=== PATIENT | female | born 1955 | race Caucasian/White ===

== ENCOUNTER 2016-12-18 06:13 | Day surgery (SDC) | payer MEDICAID ==
[2016-12-18] MEDS ORDERED: LACTATED RINGERS 1,000 ML IV ONE (06:38)
[2016-12-18] MEDS ORDERED: fentaNYL 250 MCG/5 ML VIAL IVP ONE (08:25)
[2016-12-18] MEDS ORDERED: MIDAZOLAM 2 MG/2 ML VIAL IVP ONE (08:25)
== END 2016-12-18 06:14 | disposition home or self-care (01) ==
PROC: 0DBP8ZX Excision of Rectum, Via Natural or Artificial Opening Endoscopic, Diagnostic (ICD-10-PCS; principal; 2016-12-18 07:30)
DX: Z12.11 Encounter for screening for malignant neoplasm of colon (principal); K62.1 Rectal polyp; Z85.41 Personal history of malignant neoplasm of cervix uteri; Z85.118 Personal history of other malignant neoplasm of bronchus and lung; K21.9 Gastro-esophageal reflux disease without esophagitis; K64.8 Other hemorrhoids
CPT/HCPCS: 45380; J3010; J7120

== ENCOUNTER 2017-08-04 08:27 | Observation (INO) | payer MEDICAID ==
[2017-08-04] MEDS ORDERED: ONDANSETRON 4 MG/2 ML VIAL IVP STA (09:12)
[2017-08-04] MEDS ORDERED: SODIUM CHLORIDE 0.9% 1,000 ML IV ONE (09:12)
[2017-08-04] MEDS ORDERED: ONDANSETRON 4 MG/2 ML VIAL ONE (09:20)
[2017-08-04 09:25] LABS: BASOPHILS % (AUTO) 0.3 %; HCT - HEMATOCRIT 39.7 % (37.0-47.0); HGB - HEMOGLOBIN 13.4 g/dL (12.0-16.0); LYMPHOCYTES # (AUTO) 0.6 10^3/uL (1.5-3.5); LYMPHOCYTES % (AUTO) 6.1 %; MEAN CORPUSCULAR HEMOGLOBIN 31.4 pg (27.0-31.0); MEAN CORPUSCULAR HGB CONC 33.7 g/dL (32.0-36.0); MEAN CORPUSCULAR VOLUME 93.3 fL (81.0-99.0); MEAN PLATELET VOLUME 6.9 fL (7.9-10.8); MONOCYTES # (AUTO) 0.2 10^3/uL (0.0-1.0); MONOCYTES % (AUTO) 2.5 %; NEUTROPHILS # (AUTO) 8.6 10^3/uL (1.5-6.6); NEUTROPHILS % (AUTO) 91.1 %; RED BLOOD COUNT 4.26 10^6/uL (4.20-5.40); RED CELL DISTRIBUTION WIDTH 14.3 % (12.0-15.0); UNCORRECTED WHITE BLOOD COUNT 9.5 x10^3/uL; WHITE BLOOD COUNT 9.5 x10^3/uL (4.8-10.8)
[2017-08-04 09:39] LABS: ALBUMIN/GLOBULIN RATIO 1.3 (1.0-2.2); BILIRUBIN,TOTAL 0.5 mg/dL (0.2-1.0); CALCIUM 9.5 mg/dL (8.5-10.3); CREATININE 0.7 mg/dL (0.4-1.0); POTASSIUM 3.5 mmol/L (3.5-5.0); TOTAL PROTEIN 6.9 g/dL (6.7-8.2)
[2017-08-04] MEDS ORDERED: SODIUM CHLORIDE FLUSH 0.9% 10 ML SYRINGE IVP ONE (10:10)
[2017-08-04] MEDS ORDERED: PROMETHAZINE INJ 25 MG in SODIUM CHLORIDE 0.9% 50 ML IV STA (10:13)
--- NOTE | 2017-08-04 10:16 | ED Physician Documentation ---
PD HPI NVD - Stated complaint Stated Complaint: VOMITING - Chief complaint Chief Complaint: Abd Pain - History obtained from History obtained from: Patient, Family - History of Present Illness Timing - onset: Last night Timing - duration: Hours Timing - details: Abrupt onset, Still present in ED Associated symptoms: Abdominal pain, Loss of appetite Contributing factors: Sick contact ( sick with same last week with milder symptoms.) Improved by: Laying still Worsened by: Eating, Moving Similar symptoms before: Has not had sx before Recently seen: Not recently seen - Additonal information Additional information: 61-year-old female with a prior history of 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 Her had similar symptoms last week. Review of Systems Constitutional: reports: Chills, Myalgias, Fatigue. denies: Fever Eyes: denies: Decreased vision Ears: denies: Ear pain Nose: denies: Rhinorrhea / runny nose, Congestion Throat: denies: Sore throat Cardiac: denies: Chest pain / pressure, Palpitations Respiratory: denies: Dyspnea, Cough GI: reports: Abdominal Pain, Nausea, Vomiting : denies: Dysuria, Frequency Skin: denies: Rash Musculoskeletal: denies: Neck pain, Back pain, Extremity pain Neurologic: reports: Generalized weakness, Headache. denies: Focal weakness, Numbness, Head injury, LOC PD PAST MEDICAL HISTORY - Past Medical History Past Medical History: Yes Cardiovascular: None Respiratory: None Endocrine/Autoimmune: None GI: GERD : None HEENT: None Psych: None Musculoskeletal: None Derm: None Other Past Medical History: cervical cancer - Past Surgical History Past Surgical History: Yes HEENT: Tonsil/Adenoidectomy - Present Medications Home Medications: Ambulatory Orders Medication Instructions Recorded Confirmed Esomeprazole Magnesium [Nexium] 20 mg PO DAILY PRN 12/17/16 08/04/17 Gabapentin 300 mg PO DAILY PRN 12/17/16 08/04/17 Ondansetron HCl [Zofran] 8 mg PO QID PRN 12/17/16 08/04/17 - Allergies Allergies/Adverse Reactions: Allergies Allergy/AdvReac Type Severity Reaction Status Date / Time acetaminophen [From Vicodin] AdvReac Intermediate Nausea Verified 08/04/17 08:37 hydrocodone bitartrate * AdvReac Mild Nausea Verified 08/04/17 08:37 [From Vicodin] - Social History Does the pt smoke?: No Smoking Status: Never smoker PD ED PE NORMAL - Vitals Vital signs reviewed: Yes (normal ) - General General: Alert and oriented X 3, Well developed/nourished, Other (The patient is withdrawn and appears anxious. ) - HEENT HEENT: Atraumatic, PERRL, EOMI, Other (dry mucous membranes) - Neck Neck: Supple, no meningeal sign, No bony TTP - Cardiac Cardiac: RRR, No murmur - Respiratory Respiratory: No respiratory distress, Clear bilaterally - Abdomen Abdomen: Soft, Non tender - Back Back: No CVA TTP, No spinal TTP - Derm Derm: Normal color, Warm and dry, No rash - Extremities Extremities: No deformity, No edema - Neuro Neuro: No motor deficit, No sensory deficit - Psych Psych: Normal mood, Normal affect Results - Vitals Vitals: Vital Signs - 24 hr 08/04/17 08/04/17 08/04/17 08:34 09:37 10:40 Temperature 36 C L 36.2 C L 36.6 C Heart Rate 78 78 83 Respiratory 18 16 15 Rate Blood Pressure 128/80 118/67 125/66 O2 Saturation 99 98 95 08/04/17 12:42 Temperature Heart Rate 83 Respiratory 18 Rate Blood Pressure 138/62 H O2 Saturation 100 Oxygen O2 Source Room air - Labs Labs: Laboratory Tests 08/04/17 08/04/17 08/04/17 09:07 09:07 09:07 WBC 9.5 RBC 4.26 Hgb 13.4 Hct 39.7 MCV 93.3 MCH 31.4 H MCHC 33.7 RDW 14.3 Plt Count 237 MPV 6.9 L Neut # 8.6 H Lymph # 0.6 L [place] # 0.2 Eos # 0.0 Baso # 0.0 Absolute Nucleated RBC 0.00 Nucleated RBCs 0.0 Sodium 142 Potassium 3.5 Chloride 104 Carbon Dioxide 27 Anion Gap 11.0 BUN 19 Creatinine 0.7 Estimated GFR (MDRD) 85 L Glucose 160 H Calcium 9.5 Total Bilirubin 0.5 AST 22 ALT 20 Alkaline Phosphatase 56 Troponin I < 0.04 Total Protein 6.9 Albumin 3.9 Globulin 3.0 Albumin/Globulin Ratio 1.3 Lipase 32 Urine Color Urine Clarity Urine pH Ur Specific Macy Urine Protein Urine Glucose (UA) Urine Ketones Urine Occult Blood Urine Nitrite Urine Bilirubin Urine Urobilinogen Ur Leukocyte Esterase Ur Microscopic Review Urine Culture Comments 08/04/17 10:05 WBC RBC Hgb Hct MCV MCH MCHC RDW Plt Count MPV Neut # Lymph # [place] # Eos # Baso # Absolute Nucleated RBC Nucleated RBCs Sodium Potassium Chloride Carbon Dioxide Anion Gap BUN Creatinine Estimated GFR (MDRD) Glucose Calcium Total Bilirubin AST ALT Alkaline Phosphatase Troponin I Total Protein Albumin Globulin Albumin/Globulin Ratio Lipase Urine Color YELLOW Urine Clarity CLEAR Urine pH 7.5 Ur Specific Macy 1.015 Urine Protein NEGATIVE Urine Glucose (UA) NEGATIVE Urine Ketones NEGATIVE Urine Occult Blood NEGATIVE Urine Nitrite NEGATIVE Urine Bilirubin NEGATIVE Urine Urobilinogen 0.2 (NORMAL) Ur Leukocyte Esterase NEGATIVE Ur Microscopic Review NOT INDICATED Urine Culture Comments NOT INDICATED Procedures - IVC sono (time) 900 Bedside IVC sono: IVC measures (cm) (1.22), Dehydration PD MEDICAL DECISION MAKING - ED course Complexity details: reviewed old records, reviewed results, re-evaluated patient , considered differential, d/w patient, d/w family ED course: 61 y/o female with metastatic lung cancer in remission has developed nausea and vomiting and this appears to be associated with similar symptoms with her . He has recovered and the patient here is anxious and feels poorly and despite use of zofran, phenergan and IV saline. After 4 1/2 hours of treatment in the ED the patient would like to come into the hospital and Dr. Doyle is contacted in the case and graciously agrees to admit the patient for continued treatment. Departure - Departure Disposition: 66 [facility] DC/Xfer Clinical Impression: Dehydration, Gastroenteritis
[2017-08-04 10:21] LABS: BILIRUBIN,URINE NEGATIVE (NEGATIVE); PH,URINE 7.5 PH (5.0-7.5)
[2017-08-04 10:23] LABS: UA CHARGE (STRIP ONLY) YES; UR CULTURE IF IND NOT INDICATED
[2017-08-04] MEDS ORDERED: PROMETHAZINE 25 MG/1 ML VIAL ONE (10:25)
[2017-08-04] MEDS ORDERED: SODIUM CHLORIDE FLUSH 0.9% 10 ML SYRINGE IVP PRN (14:31)
[2017-08-04] MEDS ORDERED: ZOLPIDEM 5 MG TABLET PO PRN (14:36)
[2017-08-04] MEDS ORDERED: PROMETHAZINE 25 MG/1 ML VIAL IM PRN (14:36)
[2017-08-04] MEDS ORDERED: GABAPENTIN 300 MG CAPSULE PO PRN (14:44)
[2017-08-04] MEDS ORDERED: PANTOPRAZOLE 40 MG TABLET PO PRN (14:44)
--- NOTE | 2017-08-04 14:54 | HISTORY & PHYSICAL EXAMINATION ---
Chief Complaint - Chief Complaint Chief Complaint: abdominal pain, and nausea and vomiting History of Present Illness - Admitted From Admitted From:: emergence department - History Obtained From History obtained from: patient and her - History of Present Illness HPI Comment/Other: This is a pleasure 61-year-old Cauc[place] female with past medical history significance of cervical cancer, and metastatic to lung, current in remission, who present emergence department for evaluation of abdominal pain, nausea and vomiting. Patient report she feel great until yesterday she did some garden work with her , she felt some nausea and vomiting. Today morning around 4am, patient report she had a very bad abdominal pain, which started with up quadrant then diffused to the whole abdomen. Now when I assess patient, patient her abdominal pain is better but consistently she had nausea and vomiting. Patient denies hematemesis or hemoptysis. Patient her had the similar symptoms a few days but he was totally recovered now. Patient denies food poison or recently travel. Patient state she was on remission status since 2013 after she finished her last chemotherapy for her metastatic lung cancer from her original cervical cancer. She report she closely followed up her oncologist. Patient report loose stool but no diarrhea. Patient denies fever, chill, recent weight loss, chest pain, shortness of breathing, headache, dysuria , hemauria, vision issue. Patient's lab test and vital signs at emergence room are unremarkable. Patient is admitted in observation for evaluation of abdominal pain/ nausea/vomiting and dehydration. Review of Systems - Constitutional Constitutional: reports: Fatigue, Night sweats. denies: Fever, Chills, Malaise , Weakness, Poor appetite, Diaphoresis, Weight gain, Weight loss - Eyes Eyes: denies: Pain, Irritation, Amaurosis, Blurred vision, Spots in vision, Field loss, Vision loss, Dipolpia - Ears, Nose & Throat Ears, Nose & Throat: denies: Ear pain, Hearing loss, Hearing aids, Tinnitus, Vertigo, Nasal pain, Nasal discharge, Nosebleeds, Nasal obstruction, Nasal congestion, Postnasal drainage, Sore throat, Hoarseness, Mouth lesions, Bleeding gums - Cardiovascular Cariovascular: denies: Irregular heart rate, Palpitations, Chest pain, Edema, Lightheadedness, Syncope, Exertional dyspnea, Orthopnea - Respiratory Respiratory: denies: Cough, Sputum production, Wheezing, Snoring, Hemoptysis, Orthopnea, SOB at rest, SOB with exertion, Apnea - Gastrointestinal Gastrointestinal: reports: Abdominal pain, Nausea, Vomiting. denies: Abdominal distention, Constipation, Diarrhea, Change in bowel habits, Rectal bleeding, Black stools, Bloody stools, Bile emesis, Dane blood emesis, Coffee grounds emesis, Reflux/heartburn, Bloating, Poor appetite - Genitourinary Genitourinary: denies: Dysuria, Frequency, Urgency, Hematuria, Incontinence, Flank pain, Nocturia, Urethral discharge - Musculoskeletal Musculoskeletal: denies: Muscle pain, Back pain, Muscle aches, Stiffness, Limited range of motion, Muscle weakness, Gout - Integumentary Integumentary: denies: Rash, Pruritis, Lesions, Dryness, Pigment changes - Neurological Neurological: denies: General weakness, Focal weakness, Headache, Dizziness, Numbness, Memory problems, Pre-existing deficit, Abnormal gait, Seizures, Incoordination, Slurred speech - Psychiatric Psychiatric: denies: Depression, Anxiety, Suicidal, Delusions, Hallucinations, Homicidal - Endocrine Endocrine: denies: Polyuria, Polydypsia, Polyphagia, Intolerance to cold, Intolerance to heat - Hematologic/Lymphatic Hematologic/Lymphatic: denies: Anemia, Bruising, Petechiae, Blood clots, Lymphadenopathy, Bleeding tendencies, Recurrent infections History - Past Medical History Cardiovascular: reports: None Respiratory: reports: None Endocrine/Autoimmune: reports: None GI: reports: GERD : reports: None HEENT: reports: None Psych: reports: None Musculoskeletal: reports: None Derm: reports: None MRSA Hx?: No Other Past Medical History: cervical cancer - Past Surgical History HEENT: reports: Tonsil/Adenoidectomy - Family & Social History Family History: Mother: Alive and Well (both health, 86/88 year-old), Father: Alive and Well, Sister: Alive and Well, Brother: Alive and Well Family History Comment/Other: pt state her both parents are health. Mother is 86 yrs old, father is 88 yrs old. Pt's sister and brother are all health, no major medical issue as pt knows. Pt has four children, all are health. Living arrangement: At home Living Situation: With spouse/s.o. Social History Notes: pt has a part job working at the local [employer]. Pt denies alcohol, cigarette smoking, illicit drug. - Substance History Use: Uses substance without health or social issues: NONE Abuse: Recurrent use of substance despite neg consequences: NONE Dependence: Experiences withdrawal or developed tolerances: NONE - POLST Patient has POLST: No POLST Status: Full Code Meds/Allgy - Home Medications Home Medications: Ambulatory Orders Medication Instructions Recorded Confirmed Esomeprazole Magnesium [Nexium] 20 mg PO DAILY PRN 12/17/16 08/04/17 Gabapentin 300 mg PO DAILY PRN 12/17/16 08/04/17 Ondansetron HCl [Zofran] 8 mg PO QID PRN 12/17/16 08/04/17 - Allergies Allergies/Adverse Reactions: Allergies Allergy/AdvReac Type Severity Reaction Status Date / Time acetaminophen [From Vicodin] AdvReac Intermediate Nausea Verified 08/04/17 08:37 hydrocodone bitartrate * AdvReac Mild Nausea Verified 08/04/17 08:37 [From Vicodin] Exam - Vital Signs Reviewed Vital Signs: Yes Vital Signs: Vital Signs x48h Temp Pulse Resp BP Pulse Ox 08/04/17 12:42 83 18 138/62 H 100 08/04/17 10:40 36.6 C 83 15 125/66 95 08/04/17 09:37 36.2 C L 78 16 118/67 98 08/04/17 08:34 36 C L 78 18 128/80 99 - Physical Exam General Appearance: positive: No acute distress, Alert. negative: Lethargic Eyes Bilateral: positive: Normal inspection, PERRL. negative: No lid inflammation, Conjunctivae nml ENT: positive: ENT inspection nml, Pharynx nml, No signs of dehydration. negative: Purulent nasal drainage, Pharyngeal erythema, Oral lesions Neck: positive: Nml inspection, Thyroid nml, No JVD, Trachea midline. negative : Thyromegaly, Lymphadenopathy (R), Lymphadenopathy (L), Stiff neck, Swelling/ bruising, Tracheal deviation Respiratory: positive: Chest non-tender, No respiratory distress, Breath sounds nml. negative: Wheezes, Rales, Rhonchi Cardiovascular: positive: Regular rate & rhythm, No murmur, No gallop. negative : Tachycardia, Bradycardia, Systolic murmur, Diastolic murmur Peripheral Pulses: positive: 2+ Abdomen: positive: Non-tender, No organomegaly, Nml bowel sounds, No distention. negative: Tenderness, Guarding, Rebound Back: positive: Nml inspection. negative: CVA tenderness (R), CVA tenderness (L ) Skin: positive: Color nml, No rash, Warm, Dry. negative: Cyanosis, Diaphoresis , Pallor, Skin rash Extremities: positive: Non-tender, Full ROM, Nml appearance. negative: Pedal edema, Calf tenderness, Anjelica's sign/cords Neurologic/Psychiatric: positive: Oriented x3, Motor nml, Sensation nml, Mood/ affect nml. negative: Sensory loss, Facial droop, Slurred/abnml speech, Depressed mood/affect Conclusion/Plan - Problem List (1) Abdominal pain Conclusion/Plan: pt feel better for diffused abdominal pain now. Pt's had the similar symptoms before and recovered. It is likely virus entergastritis. But with hx of cervical and metastatic lung cancer, CT of abdomen to R/O mass effective, and pain control (2) Nausea and vomiting Conclusion/Plan: symptom control, with zofran, phenergan, compazine PRN clear diet now, advance as tolerated IVF 125 cc (3) Dehydration Conclusion/Plan: pt with nausea and vomiting, and without hx of cardiac issue hydration with IVF 125 cc (4) History of cervical cancer Conclusion/Plan: CT of abdomen to R/O mess effective advise pt closely follow up her oncologist (5) Gastroenteritis Conclusion/Plan: likely virus as explained above. plan: IVF clear diet, advance as tolerated Pepcid IV N/V symptom control daily lab to monitor vital pain control, support (6) DVT prophylaxis Conclusion/Plan: pt is without mobility limitation, SCD only now - Lab Results Fish Bones: 08/05/17 05:15 08/05/17 05:15 Issues/Core Measures - Anticipated LOS Anticipated Stay Length: Less than 2 midnights (wait for CT result, expected less than 2 nights.) - Issues Hospital Issues and Management Plan: code status: full code, pt state full code - DVT/VTE - Prophylaxis Not Ordered - Low Risk: Low Risk VTE/DVT Prophylaxis med ordered at admit?: No - Stroke - Rehab Assessment Rehab services assessment to be ordered?: No - AMI - Statin at Admit Aspirin Prescribed on Admit: No
[2017-08-04] MEDS ORDERED: IOPAMIDOL-300 50 ML VIAL PO ONE (15:14)
[2017-08-04] MEDS: SODIUM CHLORIDE FLUSH 0.9% 10 ML SYRINGE IVP SCH (15:33)
[2017-08-04] MEDS: SODIUM CHLORIDE 0.9% 1,000 ML IV SCH (15:33)
[2017-08-04] MEDS ORDERED: PROMETHAZINE INJ 25 MG in SODIUM CHLORIDE 0.9% 50 ML IV PRN (15:44)
[2017-08-04] MEDS: ONDANSETRON 4 MG/2 ML VIAL IVP PRN ×2 (15:58→22:58)
[2017-08-04] MEDS ORDERED: PROCHLORPERAZINE 10 MG/2 ML VIAL IVP PRN (16:01)
[2017-08-04] MEDS: ACETAMINOPHEN 325 MG TABLET PO PRN (20:02)
[2017-08-05] MEDS: SODIUM CHLORIDE 0.9% 1,000 ML IV SCH ×2 (00:01→08:12)
[2017-08-05] MEDS: SODIUM CHLORIDE FLUSH 0.9% 10 ML SYRINGE IVP SCH ×2 (06:03→13:26)
[2017-08-05 06:05] LABS: BASOPHILS % (AUTO) 0.5 %; EOSINOPHILS # (AUTO) 0.1 10^3/uL (0.0-0.7); EOSINOPHILS % (AUTO) 1.3 %; HCT - HEMATOCRIT 32.7 % (37.0-47.0); LYMPHOCYTES # (AUTO) 1.6 10^3/uL (1.5-3.5); LYMPHOCYTES % (AUTO) 27.2 %; MEAN CORPUSCULAR HEMOGLOBIN 32.1 pg (27.0-31.0); MEAN CORPUSCULAR HGB CONC 33.8 g/dL (32.0-36.0); MEAN PLATELET VOLUME 7.4 fL (7.9-10.8); MONOCYTES # (AUTO) 0.6 10^3/uL (0.0-1.0); MONOCYTES % (AUTO) 9.7 %; NEUTROPHILS # (AUTO) 3.7 10^3/uL (1.5-6.6); NEUTROPHILS % (AUTO) 61.3 %; RED BLOOD COUNT 3.44 10^6/uL (4.20-5.40); RED CELL DISTRIBUTION WIDTH 14.2 % (12.0-15.0)
[2017-08-05 06:14] LABS: ALBUMIN/GLOBULIN RATIO 1.5 (1.0-2.2); BILIRUBIN,TOTAL 0.5 mg/dL (0.2-1.0); CALCIUM 8.3 mg/dL (8.5-10.3); CREATININE 0.6 mg/dL (0.4-1.0); MAGNESIUM 1.7 mg/dL (1.7-2.8); POTASSIUM 3.3 mmol/L (3.5-5.0)
[2017-08-05] MEDS: ACETAMINOPHEN 325 MG TABLET PO PRN (06:30)
[2017-08-05] MEDS ORDERED: FAMOTIDINE 20 MG/50 ML 50 ML IV SCH (09:00)
[2017-08-05] MEDS ORDERED: POLYETHYLENE GLYCOL 3350 17 GM PACKET PO SCH (09:00)
[2017-08-05] MEDS: POTASSIUM CHLOR 10 MEQ/100 ML 100 ML IV SCH ×2 (09:26→12:27)
[2017-08-05] MEDS ORDERED: POTASSIUM CHLORIDE 20 MEQ TABLET PO SCH (11:00)
[2017-08-05] MEDS ORDERED: IOPAMIDOL-300 50 ML VIAL PO ONE (11:00)
[2017-08-05 11:53] VITALS: BP 104/64
--- NOTE | 2017-08-05 12:57 | CT Report ---
CT OF THE ABDOMEN AND PELVIS WITHOUT CONTRAST: 08/05/2017 CLINICAL INDICATION: Abdominal pain, history of cervical cancer. COMPARISON: Outside CT of 09/25/2015, CT of 02/09/2014. TECHNIQUE: As requested, axial CT images of the abdomen and pelvis were obtained with oral contrast o nly. FINDINGS: Limited evaluation of the lung bases demonstrates mild atelectasis. ABDOMEN: Allowing for the lack of intravenous contrast enhancement, the liver, spleen, pancreas, kidn eys and adrenal glands appear unremarkable. The gallbladder is not dilated. No bowel dilatation, free gas, or free fluid is present. No abdominal adenopathy is seen. PELVIS: The pelvic organs appear unremarkable. No pelvic adenopathy or free fluid is present. The osseous structures demonstrate degenerative changes. IMPRESSION: NO EVIDENT ETIOLOGY FOR PATIENT'S ABDOMINAL PAIN. NO EVIDENCE OF BOWEL OBSTRUCTION. In accordance with CT protocol optimization, one or more of the following dose reduction techniques w ere utilized for this exam: automated exposure control, adjustment of mA and/or KV based on patient size, or use of iterative reconstructive technique. JOB #: [id number] EXT JOB #:[id number]
--- NOTE | 2017-08-05 13:26 | Discharge Plan ---
Discharge Plan Disposition: 01 Home, Self Care Condition: Stable Diet: Regular Activity Restrictions: No Restrictions Shower Restrictions: No Driving Restrictions: No Weight Bearing: Full Weight Additional Instructions or Follow Up instructions: may see PCP in two weeks. Follow-Up Care: [facility] [place] [facility] - Medical No Smoking: If you smoke, Please STOP! Call for help.
--- NOTE | 2017-08-05 13:27 | DISCHARGE SUMMARY ---
Discharge Summary Admit Date: 08/04/17 Discharge Date: 08/05/17 Discharging Provider: PASCUAL Primary Care Provider: Ashley Reid Condition at Discharge: Stable Discharge Disposition: 01 Home, Self Care Discharge Facility Name: home - DIAGNOSES Admission Diagnoses: 1,abdominal pain 2, nausea and vomiting 3, dehydration 4, history of cervical cancer and metastatic lung caner Discharge Diagnoses with Status of Each Condition: 1,abdominal pain resolved 2, nausea and vomiting resolved 3, dehydration resolved 4, history of cervical cancer and metastatic lung caner stable, follow up pt's oncologist - HPI History of Present Illness: please refer my HPI on 08/04/17 as the following This is a pleasure 61-year-old Cauc[place] female with past medical history significance of cervical cancer, and metastatic to lung, current in remission, who present emergence department for evaluation of abdominal pain, nausea and vomiting. Patient report she feel great until yesterday she did some garden work with her , she felt some nausea and vomiting. Today morning around 4am, patient report she had a very bad abdominal pain, which started with up quadrant then diffused to the whole abdomen. Now when I assess patient, patient her abdominal pain is better but consistently she had nausea and vomiting. Patient denies hematemesis or hemoptysis. Patient her had the similar symptoms a few days but he was totally recovered now. Patient denies food poison or recently travel. Patient state she was on remission status since 2013 after she finished her last chemotherapy for her metastatic lung cancer from her original cervical cancer. She report she closely followed up her oncologist. Patient report loose stool but no diarrhea. Patient denies fever, chill, recent weight loss, chest pain, shortness of breathing, headache, dysuria , hemauria, vision issue. Patient's lab test and vital signs at emergence room are unremarkable. Patient is admitted in observation for evaluation of abdominal pain/ nausea/vomiting and dehydration. - HOSPITAL COURSE Hospital Course: pt was admitted with chief complaint of abdominal pain, nausea and vomiting. Pt' s had the similar symptoms a few days ago. Pt denies food poison, recent travel. It is likely pt had virus enterogastritis. Pt was treated with IVF, clear diet, symptom control of nausea and vomiting. Because pt had hx of cervical cancer and metastatic lung cancer, pt had CT of abdomen. Ct reveals unremarkable. pt's symptoms are resolved today. pt request to be discharged today. - ALLERGIES Allergies/Adverse Reactions: Allergies Allergy/AdvReac Type Severity Reaction Status Date / Time acetaminophen [From Vicodin] AdvReac Intermediate Nausea Verified 08/04/17 08:37 hydrocodone bitartrate * AdvReac Mild Nausea Verified 08/04/17 08:37 [From Vicodin] - MEDICATIONS Home Medications: Ambulatory Orders Medication Instructions Recorded Confirmed Esomeprazole Magnesium [Nexium] 20 mg PO DAILY PRN 12/17/16 08/04/17 Gabapentin 300 mg PO DAILY PRN 12/17/16 08/04/17 Ondansetron HCl [Zofran] 8 mg PO QID PRN 12/17/16 08/04/17 - PHYSICAL EXAM AT DISCHARGE General Appearance: positive: No acute distress, Alert. negative: Lethargic Eyes Bilateral: positive: Normal inspection, PERRL, EOMI, Conjunctivae nml. negative: No lid inflammation ENT: positive: ENT inspection nml, Pharynx nml, No signs of dehydration. negative: Purulent nasal drainage, Pharyngeal erythema Neck: positive: Nml inspection, Thyroid nml, Trachea midline. negative: Thyromegaly, Lymphadenopathy (R), Lymphadenopathy (L), Stiff neck, Swelling/ bruising, Tracheal deviation Respiratory: positive: Chest non-tender, No respiratory distress, Breath sounds nml. negative: Wheezes, Rales, Rhonchi Cardiovascular: positive: Regular rate & rhythm, No murmur, No gallop. negative : Irregularly irregular, Tachycardia, Bradycardia, Systolic murmur, Diastolic murmur Peripheral Pulses: positive: 2+ Abdomen: positive: Non-tender, Nml bowel sounds, No distention. negative: Tenderness, Guarding, Rebound Back: positive: Nml inspection. negative: CVA tenderness (R), CVA tenderness (L ) Skin: positive: Color nml, No rash, Warm, Dry. negative: Cyanosis, Diaphoresis , Skin rash, Embolic lesions Extremities: positive: Non-tender, Full ROM, Nml appearance. negative: Calf tenderness, Joint swelling, Anjelica's sign/cords Neurologic/Psychiatric: positive: Oriented x3, Motor nml, Sensation nml, Mood/ affect nml. negative: Sensory loss, Facial droop, Slurred/abnml speech, Depressed mood/affect - LABS Result Diagrams: 08/05/17 05:15 08/05/17 05:15 - FOLLOW UP Follow Up: pt is advised to follow up PCP in two weeks, and follow up her oncologist closely. - TIME SPENT Time Spent in Discharge (Minutes): 40
== END 2017-08-05 14:13 | disposition home or self-care (01) ==
LOC: ED 08:27 → OBS 14:31
PROVIDERS: ADMIT Nurse Practitioner Gerontology; ATTEND Nurse Practitioner Gerontology
DX: K52.9 Noninfective gastroenteritis and colitis, unspecified (principal); E86.0 Dehydration; K21.9 Gastro-esophageal reflux disease without esophagitis; Z85.41 Personal history of malignant neoplasm of cervix uteri; Z85.118 Personal history of other malignant neoplasm of bronchus and lung
CPT/HCPCS: 36415; 74176; 80053; 81003; 83690; 83735; 84484; 85025; 96365; 96366; 96367; 96375; 96376; 99284; 99285; A9270; G0378; J7040; Q9967; 81001; 87086

== ENCOUNTER 2018-10-07 20:16 | Observation (INO) | payer MEDICAID ==
[2018-10-07 20:48] LABS: BASOPHILS % (AUTO) 0.2 %; HGB - HEMOGLOBIN 12.2 g/dL (12.0-16.0); LYMPHOCYTES # (AUTO) 0.6 10^3/uL (1.5-3.5); LYMPHOCYTES % (AUTO) 5.6 %; MEAN CORPUSCULAR HEMOGLOBIN 29.8 pg (27.0-31.0); MEAN CORPUSCULAR HGB CONC 33.4 g/dL (32.0-36.0); MEAN CORPUSCULAR VOLUME 89.5 fL (81.0-99.0); MONOCYTES # (AUTO) 0.2 10^3/uL (0.0-1.0); MONOCYTES % (AUTO) 2.1 %; NEUTROPHILS # (AUTO) 9.1 10^3/uL (1.5-6.6); NEUTROPHILS % (AUTO) 92.1 %; PLT - PLATELET COUNT 260 10^3/uL (130-450); RED BLOOD COUNT 4.09 10^6/uL (4.20-5.40); RED CELL DISTRIBUTION WIDTH 15.7 % (12.0-15.0); WHITE BLOOD COUNT 9.9 x10^3/uL (4.8-10.8)
[2018-10-07 21:00] LABS: BILIRUBIN,URINE NEGATIVE (NEGATIVE); GLUCOSE, URINE (UA) NEGATIVE (NEGATIVE); KETONES,URINE (UA) 40 mg/dL (NEGATIVE); LEUKOCYTE ESTERASE, URINE NEGATIVE (NEGATIVE); NITRITE,URINE NEGATIVE (NEGATIVE); OCCULT BLOOD,URINE SMALL (NEGATIVE); PH,URINE 5.5 PH (5.0-7.5); PROTEIN,URINE NEGATIVE (NEGATIVE); UROBILINOGEN,URINE 0.2 (NORMAL) E.U./dL (NORMAL)
[2018-10-07 21:01] LABS: ALBUMIN 4.1 g/dL (3.2-5.5); ALBUMIN/GLOBULIN RATIO 1.5 (1.0-2.2); BILIRUBIN,TOTAL 0.6 mg/dL (0.2-1.0); CALCIUM 9.6 mg/dL (8.5-10.3); CREATININE 0.8 mg/dL (0.4-1.0); TOTAL PROTEIN 6.9 g/dL (6.7-8.2)
[2018-10-07] MEDS ORDERED: ONDANSETRON 4 MG/2 ML VIAL IVP STA (21:03)
--- NOTE | 2018-10-07 21:05 | ED Physician Documentation ---
PD HPI NVD - Stated complaint Stated Complaint: NAUSEA/VOMITING - Chief complaint Chief Complaint: Abd Pain - History obtained from History obtained from: Patient, Family - History of Present Illness Timing - onset: Enter time (1300), Today Timing - duration: Hours Timing - details: Abrupt onset, Still present Associated symptoms: No: Fever, Abdominal pain, Chest pain, Hematemesis, Melena Contributing factors: No: Sick contact, Bad food Improved by: Laying still, Vomiting Similar symptoms before: Diagnosis (gastroenteritis last year) Recently seen: Not recently seen - Additonal information Additional information: 62-year-old female has developed acute nausea and vomiting again today. She has had nausea and vomiting 1 week ago this resolved she felt well in between except for some weakness and today she is much weaker and continues to have nausea and vomiting. She was not able to control the vomiting with ondansetron she had at home. Review of Systems Constitutional: reports: Sweats. denies: Fever, Chills Eyes: denies: Decreased vision Ears: denies: Ear pain Nose: denies: Rhinorrhea / runny nose, Congestion Throat: denies: Sore throat Cardiac: denies: Chest pain / pressure, Palpitations Respiratory: denies: Dyspnea, Cough GI: reports: Nausea, Vomiting. denies: Abdominal Pain, Constipation, Diarrhea : denies: Dysuria, Frequency Skin: reports: Rash (to the ring finger) Musculoskeletal: denies: Neck pain, Back pain, Extremity pain Neurologic: denies: Generalized weakness, Focal weakness, Numbness PD PAST MEDICAL HISTORY - Past Medical History Cardiovascular: None Respiratory: None Endocrine/Autoimmune: None GI: GERD : None HEENT: None Psych: None Musculoskeletal: None Derm: None - Past Surgical History Past Surgical History: Yes HEENT: Tonsil/Adenoidectomy - Present Medications Home Medications: Ambulatory Orders Medication Instructions Recorded Confirmed RX: Gabapentin 300 mg PO BID 12/17/16 10/07/18 RX: Ondansetron HCl [Zofran] 8 mg PO QID PRN 12/17/16 10/07/18 Omeprazole [PriLOSEC] 10/07/18 - Allergies Allergies/Adverse Reactions: Allergies Allergy/AdvReac Type Severity Reaction Status Date / Time acetaminophen [From Vicodin] AdvReac Intermediate Nausea Verified 10/07/18 20:23 hydrocodone bitartrate * AdvReac Mild Nausea Verified 10/07/18 20:23 [From Vicodin] - Social History Does the pt smoke?: No Smoking Status: Never smoker - POLST Patient has POLST: No POLST Status: Full Code PD ED PE NORMAL - Vitals Vital signs reviewed: Yes (normal ) - General General: Alert and oriented X 3, Well developed/nourished - HEENT HEENT: Atraumatic, PERRL, EOMI - Neck Neck: Supple, no meningeal sign - Cardiac Cardiac: RRR, No murmur - Respiratory Respiratory: No respiratory distress, Clear bilaterally - Abdomen Abdomen: Soft, Other (mild general tenderness without garding or rebound ) - Back Back: No CVA TTP, No spinal TTP - Derm Derm: Normal color, Warm and dry, Other (excema to the left ring finger under the ring ) - Extremities Extremities: No deformity, No edema - Neuro Neuro: Alert and oriented X 3, cue selector 2-12 intact, No motor deficit, No sensory deficit, Normal speech Eye Opening: Spontaneous Motor: Obeys Commands Verbal: Oriented GCS Score: 15 - Psych Psych: Normal mood, Normal affect Results - Vitals Vitals: Vital Signs - 24 hr 10/07/18 10/07/18 20:21 22:15 Temperature 36 C L Heart Rate 90 76 Respiratory 18 16 Rate Blood Pressure 120/64 128/78 O2 Saturation 100 97 Oxygen O2 Source Room air - Labs Labs: Laboratory Tests 10/07/18 10/07/18 10/07/18 20:44 20:44 20:57 WBC 9.9 RBC 4.09 L Hgb 12.2 Hct 36.6 L MCV 89.5 MCH 29.8 MCHC 33.4 RDW 15.7 H Plt Count 260 MPV 7.0 L Neut # (Auto) 9.1 H Lymph # (Auto) 0.[address] # (Auto) 0.2 Eos # (Auto) 0.0 Baso # (Auto) 0.0 Absolute Nucleated RBC 0.00 Nucleated RBC % 0.0 Sodium 135 Potassium 3.7 Chloride 101 Carbon Dioxide 25 Anion Gap 9.0 BUN 25 H Creatinine 0.8 Estimated GFR (MDRD) 72 L Glucose 161 H Calcium 9.6 Total Bilirubin 0.6 AST 21 ALT 17 Alkaline Phosphatase 55 Total Protein 6.9 Albumin 4.1 Globulin 2.8 Albumin/Globulin Ratio 1.5 Lipase 45 Urine Color YELLOW Urine Clarity CLEAR Urine pH 5.5 Ur Specific [place] >=1.030 H Urine Protein NEGATIVE Urine Glucose (UA) NEGATIVE Urine Ketones 40 H Urine Occult Blood SMALL H Urine Nitrite NEGATIVE Urine Bilirubin NEGATIVE Urine Urobilinogen 0.2 (NORMAL) Ur Leukocyte Esterase NEGATIVE Urine RBC 6-10 H Urine WBC 0-3 Ur Squamous Epith Cells RARE Squamous Urine Bacteria None Seen Ur Microscopic Review INDICATED Urine Culture Comments NOT INDICATED Procedures - IVC sono (time) 2100 Bedside IVC sono: IVC measures (cm) (1.34), IVC collapsed c insp (cm) (complete), Dehydration (est 1 liter deficit) PD MEDICAL DECISION MAKING - ED course Complexity details: reviewed results, re-evaluated patient, considered differential, d/w patient, d/w family ED course: 62-year-old female with a history of metastatic cervical cancer to the lung who is in remission from her disease has had prior chemo and radiation therapy. Her disease started in 2013. She had her last staging in April. She is developed acute nausea and vomiting and she is mildly dehydrated. She had a similar incident last year and required overnight hospitalization was well. Here in the emerge department today she is administered intravenous saline and Zofran as well as 10 mg of dexamethasone as she has had dexamethasone a number of times while she was receiving chemotherapy. She does not appear to respond to the treatment and hospitalization is sought. Departure - Departure Disposition: ED Place in Observation Clinical Impression: Dehydration, Nausea and vomiting Condition: Stable Discharge Date/Time: 10/08/18 00:39
[2018-10-07] MEDS ORDERED: DEXAMETHASONE 10 MG/ML VIAL IVP STA (21:08)
[2018-10-07 21:11] LABS: CLARITY,URINE CLEAR (CLEAR)
[2018-10-07 21:12] LABS: BACTERIA,URINE None Seen /HPF (None Seen); SQUAMOUS EPITHELIAL CELL,UR RARE Squamous (<= Few)
[2018-10-07] MEDS ORDERED: PROMETHAZINE INJ 25 MG in SODIUM CHLORIDE 0.9% 50 ML IV STA (21:50)
[2018-10-07] MEDS ORDERED: IBUPROFEN 600 MG TABLET PO PRN (23:43)
[2018-10-07] MEDS ORDERED: ACETAMINOPHEN 325 MG TABLET PO PRN (23:43)
[2018-10-07] MEDS ORDERED: MORPHINE 2 MG/ML CARPUJECT IVP PRN (23:43)
[2018-10-07] MEDS ORDERED: SODIUM CHLORIDE 0.9% 1,000 ML IV ONE (23:51)
--- NOTE | 2018-10-07 23:54 | HISTORY & PHYSICAL EXAMINATION ---
Chief Complaint - Chief Complaint Chief Complaint: Nausea and vomiting History of Present Illness - Admitted From Admitted From:: Emergency department - History Obtained From Records Reviewed: Emergency department and previous hospital stay History obtained from: Patient and Dr. Monahan Exam Limitations: None - History of Present Illness HPI Comment/Other: Patient is a 62-year-old female with a past medical history of cervical cancer who presents to the emergency department today with a chief complaint of nausea and vomiting with moderate abdominal pain that began at approximately 1 PM this afternoon. Patient is in remission with regards to cervical cancer, last chemotherapy about 4 years ago, and has not had any significant medical complications related to this. She does however have a history of gastroenterit is that approximately 1 year ago presented very similarly to [address] Monahan recalls taking care of her last time and she did require an overnight admission for rehydration and antiemetic medications. Patient states that at approximately 1 PM this afternoon with no known provocation, the patient started having nausea and vomiting and an inability to tolerate anything by mouth.She denies any hematochezia, hemoptysis, fever, though she does report subjective chills. She denies any recent travel, known sick contacts,Large meals, or any other possible triggers that she is aware of to initiate nausea and vomiting. She does have Zofran at home, 8 mg by mouth, and this was not helping. When she came to the emergency room she was given IV fluids, dexamethasone, promethazine, and Zofran, none of which have really helped very much. Patient's workup in the emergency room included a CBC, CMP, urinalysis, all of which have been generally unremarkable. There is no evidence of a UTI. Imaging studies were not pursued at this point given that the patient does not present with an acute abdomen though she does complain of some mild to moderate epigastric discomfort. At this point Dr. Monahan called asked to admit the patient to our service. 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 Social History Notes: pt has a part job working at the local [employer]. Pt denies alcohol, cigarette smoking, illicit drug. - Substance History Use: Uses substance without health or social issues: NONE Abuse: Recurrent use of substance despite neg consequences: NONE Dependence: Experiences withdrawal or developed tolerances: NONE - POLST Patient has POLST: No POLST Status: Full Code Meds/Allgy - Home Medications Home Medications: Ambulatory Orders Medication Instructions Recorded Confirmed Gabapentin 300 mg PO BID 12/17/16 10/07/18 Ondansetron HCl [Zofran] 8 mg PO QID PRN 12/17/16 10/07/18 Omeprazole [PriLOSEC] 10/07/18 - Allergies Allergies/Adverse Reactions: Allergies Allergy/AdvReac Type Severity Reaction Status Date / Time acetaminophen [From Vicodin] AdvReac Intermediate Nausea Verified 10/07/18 20:23 hydrocodone bitartrate * AdvReac Mild Nausea Verified 10/07/18 20:23 [From Vicodin] Review of Systems - Constitutional Constitutional: reports: Fatigue, Chills, Malaise, Weakness, Poor appetite, Night sweats. denies: Weight gain, Weight loss - Cardiovascular Cariovascular: denies: Chest pain - Respiratory Respiratory: denies: Hemoptysis, SOB at rest, SOB with exertion - Gastrointestinal Gastrointestinal: reports: Abdominal pain, Nausea, Vomiting, Bile emesis, Poor appetite. denies: Abdominal distention, Constipation, Diarrhea, Change in bowel habits, Black stools, Bloody stools, Dane blood emesis, Coffee grounds emesis - Genitourinary Genitourinary: denies: Dysuria, Frequency, Urgency, Hematuria - Musculoskeletal Musculoskeletal: reports: Muscle aches, Joint pain - Neurological Neurological: reports: General weakness, Other (Neuropathic pain) Prior Level of Functionality: Independent Exam - Vital Signs Reviewed Vital Signs: Yes Vital Signs: Vital Signs x48h Temp Pulse Resp BP Pulse Ox 10/07/18 22:15 76 16 128/78 97 10/07/18 20:21 36 C L 90 18 120/64 100 - Physical Exam General Appearance: positive: No acute distress, Lethargic Eyes Bilateral: positive: Normal inspection ENT: positive: Dry mucous membranes Neck: positive: Nml inspection Respiratory: positive: No respiratory distress. negative: Wheezes, Rales, Rhonchi Cardiovascular: positive: Regular rate & rhythm, No murmur, No gallop Peripheral Pulses: positive: 2+ Abdomen: positive: No organomegaly, Nml bowel sounds, No distention, Tenderness (Mild epigastric and suprapubic tenderness) Skin: positive: Dry Extremities: positive: No pedal edema Neurologic/Psychiatric: positive: Oriented x3, CN's nml (2-12), Motor nml, Mood/affect nml Conclusion/Plan - Problem List (1) Nausea and vomiting Conclusion/Plan: Etiology is unclear however the patient does have a history of gastroenteritis and presented very similarly to today's symptoms. Given her body aches, and headaches, and lack of focal findings on abdominal exam, would be prudent to check a flu swab, can potentially start Tamiflu if positive given the short duration since onset of symptoms. Otherwise, will treat symptomatically with IV fluids and antiemetics for a probable discharge from observation tomorrow, however if pain increases consider abdominal imaging given her history of cervical cancer with metastasis to lung. Qualifiers: Vomiting type: unspecified Vomiting Intractability: intractable Qualified Code(s): R11.2 - Nausea with vomiting, unspecified (2) Neuropathic pain Conclusion/Plan: Likely secondary to chemo or radiation therapy, patient takes gabapentin at home. It is unclear if she will be able to tolerate this by mouth so I have added morphine as needed until she is able to tolerate p.o.'s better. (3) Headache Conclusion/Plan: Likely secondary to dehydration, patient admits to having headaches when this happens. Have added Toradol as needed for headache as well as ibuprofen and Mo obdulio.If not improved, certainly would not be unreasonable to consider imaging given her cancer history, but again at this point no acute indications to do soGiven that this is likely dehydration. Qualifiers: Headache type: tension-type Headache chronicity pattern: acute headache Intractability: not intractable Qualified Code(s): G44.209 - Tension-type headache, unspecified, not intractable (4) Abdominal pain Conclusion/Plan: Abdominal pain likely secondary to mechanical irritation from emesis. Continue IV fluid support with antiemetics, again if abdominal pain increases would consider abdominal imaging given her cancer history. However, at this point her exam is relatively benign and I think it is easily explainable with the recent vomiting so we will hold off on imaging for now pending clinical course. Qualifiers: Abdominal location: periumbilical Qualified Code(s): R10.33 - Periumbilical pain - Lab Results Lab results reviewed: Yes Donnie Bones: 10/07/18 20:44 10/07/18 20:44 Core Measures - Anticipated LOS I expect patient to be DC'd or transferred within 96 hours.: Yes - Issues Hospital Issues and Management Plan: Patient is placed in observation with anticipated discharge in 24-48 hours or less - DVT/VTE - Prophylaxis VTE/DVT Device ordered at admit?: Yes
[2018-10-08] MEDS: PROCHLORPERAZINE 10 MG/2 ML VIAL IVP PRN ×4 (01:00→20:17)
[2018-10-08] MEDS: DEXTROSE 5%-0.9% NACL 1,000 ML IV SCH ×2 (01:05→10:44)
[2018-10-08] MEDS: SODIUM CHLORIDE FLUSH 0.9% 10 ML SYRINGE IVP SCH ×4 (01:06→18:34)
[2018-10-08] MEDS: KETOROLAC 30 MG/ML VIAL IVP PRN ×3 (01:43→16:14)
[2018-10-08] MEDS: SODIUM CHLORIDE FLUSH 0.9% 10 ML SYRINGE IVP PRN ×3 (01:44→20:18)
[2018-10-08] MEDS: ONDANSETRON 4 MG/2 ML VIAL IVP PRN ×4 (07:00→18:34)
[2018-10-08] MEDS: PANTOPRAZOLE 40 MG VIAL IVP SCH (07:02)
[2018-10-08] MEDS: ENOXAPARIN 40 MG/0.4 ML SYRINGE SUBQ SCH (08:28)
[2018-10-08] MEDS ORDERED: POLYETHYLENE GLYCOL 3350 17 GM PACKET PO SCH (09:00)
[2018-10-08] MEDS: GABAPENTIN 300 MG CAPSULE PO SCH ×2 (09:07→20:18)
[2018-10-08 14:37] LABS: CALCIUM 8.3 mg/dL (8.5-10.3); CREATININE 0.7 mg/dL (0.4-1.0)
--- NOTE | 2018-10-08 15:35 | XRAY Report ---
Reason: N/V, abd pain Procedure Date: 10/08/2018 Accession Number: [id number] / [id number] Procedure: XR - Abdomen 1 View X-Ray CPT Code: 73654 FULL RESULT: EXAM: ABDOMEN RADIOGRAPHY EXAM DATE: 10/08/2018 02:48 PM. CLINICAL HISTORY: Nausea/vomiting, abdominal pain. COMPARISON: ABDOMEN/PELVIS W/O 08/05/2017 12:10 PM. TECHNIQUE: 1 view. FINDINGS: Bowel Gas Pattern: Within normal limits. No dilated loops. Other: No radiopaque urinary tract stones. Soft tissues and osseous structures are within expected limits. Small metallic foreign body possibly a surgical clip is located in the central pelvis unchanged from a comparison CT of 08/05/2017. IMPRESSION: Normal 1-view abdomen x-ray. RADIA
[2018-10-08] MEDS: POTASSIUM CHLOR 10 MEQ/100 ML 10 MEQ/100 ML BAG IV SCH ×2 (16:14→18:35)
--- NOTE | 2018-10-08 17:44 | PROVIDER PROGRESS NOTE ---
Assessment/Plan - Problem List (1) Gastroenteritis Assessment/Plan: She is having slow improvement in sx and abd XRay showed no ileus or air/fluid levels to consider obstruction. Continue with symptomatic management and iv hydration. (2) Hypokalemia due to loss of potassium Assessment/Plan: Replace K Monitor BMP daily. - Current Meds Current Meds: Current Medications Generic Name Dose Route Start Last Admin Trade Name Freq PRN Reason Stop Dose Admin Enoxaparin Sodium 40 mg 10/08/18 09:00 10/08/18 08:28 Lovenox SUBQ 40 mg DAILY LINDY Administration Gabapentin 300 mg 10/08/18 09:00 10/08/18 09:07 Neurontin PO Not Given BID LINDY Dextrose/Sodium Chloride 1,000 mls @ 100 mls/hr 10/07/18 23:45 10/08/18 10:44 D5ns IV 10/08/18 19:44 100 mls/hr .Q10H LINDY Administration Potassium Chloride 10 meq in 100 mls @ 100 mls/hr 10/08/18 16:00 10/08/18 16:14 Potassium Chloride IV 10/08/18 17:59 100 mls/hr Q1H LINDY Administration Ketorolac Tromethamine 30 mg 10/07/18 23:50 10/08/18 16:14 Toradol Inj (30mg) IVP 10/12/18 23:44 30 mg TID PRN Administration HEADACHE Ondansetron HCl 8 mg 10/07/18 23:48 10/08/18 15:01 Zofran Inj IVP 8 mg Q4HR PRN Administration Nausea / Vomiting Pantoprazole Sodium 40 mg 10/08/18 07:00 10/08/18 07:02 Protonix IVP 40 mg QDAC LINDY Administration Prochlorperazine Edisylate 10 mg 10/07/18 23:43 10/08/18 13:58 Compazine Inj IVP 10 mg Q6HR PRN Administration Nausea / Vomiting Sodium Chloride 10 ml 10/07/18 23:43 10/08/18 07:02 Normal Saline Flush 0.9% IVP 10 ml PRN PRN Administration NEEDED PER PROVIDER ORDERS Sodium Chloride 10 ml 10/08/18 01:00 10/08/18 17:30 Normal Saline Flush 0.9% IVP Not Given 0100,0900,1700 LINDY - Lab Result Fish Bone Diagrams: 10/07/18 20:44 10/08/18 14:20 - Additional Planning My Orders: My Active Orders 10/08/18 16:00 Potassium Chlor 10 Meq/100 ml [Potassium Chloride] 10 meq in 100 ml IV Q1H 10/08/18 21:00 LORazepam INJ [Ativan Inj (Vial)] 1 mg IVP QPM PRN 10/08/18 22:00 D5ns W/20 Meq KCl 1,000 ml IV 125 mls/hr Subjective - Subjective Patient Reports: Feeling Better, Nausea Nursing Reports: Other (She needed her antiemetics around the clock during the day) Objective Vital Signs: Vital Signs - 24 hr 10/07/18 10/07/18 10/08/18 20:21 22:15 00:17 Temperature 36 C L 36.9 C Heart Rate 90 76 85 Heart Rate [ Brachial] Respiratory 18 16 16 Rate Blood Pressure 120/64 128/78 136/77 H Blood Pressure [Right Brachial artery] O2 Saturation 100 97 95 10/08/18 10/08/18 10/08/18 01:07 08:00 15:43 Temperature 37.1 C 36.9 C 37.0 C Heart Rate Heart Rate [ 81 91 72 Brachial] Respiratory 16 22 20 Rate Blood Pressure Blood Pressure 145/80 H 150/71 H 110/57 L [Right Brachial artery] O2 Saturation 98 97 96 Oxygen O2 Source Room air I&O (Last 24 Hrs): Intake and Output Totals x24h 10/06/18 10/07/18 10/08/18 23:59 23:59 23:59 Intake Total 1051 965 Balance 1051 965 General: Alert, Oriented x3 HEENT: Mucous membr. moist/pink Neck: Supple Neuro: Non Focal Cardiovascular: Regular rate, No murmurs Respiratory: No respiratory distress, Breath sounds nml Abdomen: Normal bowel sounds, Soft, Other (Minimal tenderness in mid abdomen) - Results Results: Laboratory Results WBC 9.9 x10^3/uL (4.8-10.8) 10/07/18 20:44 RBC 4.09 10^6/uL (4.20-5.40) L 10/07/18 20:44 Hgb 12.2 g/dL (12.0-16.0) 10/07/18 20:44 Hct 36.6 % (37.0-47.0) L 10/07/18 20:44 MCV 89.5 fL (81.0-99.0) 10/07/18 20:44 MCH 29.8 pg (27.0-31.0) 10/07/18 20:44 MCHC 33.4 g/dL (32.0-36.0) 10/07/18 20:44 RDW 15.7 % (12.0-15.0) H 10/07/18 20:44 Plt Count 260 10^3/uL (130-450) 10/07/18 20:44 MPV 7.0 fL (7.9-10.8) L 10/07/18 20:44 Neut # (Auto) 9.1 10^3/uL (1.5-6.6) H 10/07/18 20:44 Lymph # (Auto) 0.6 10^3/uL (1.5-3.5) L 10/07/18 20:44 [place] # (Auto) 0.2 10^3/uL (0.0-1.0) 10/07/18 20:44 Eos # (Auto) 0.0 10^3/uL (0.0-0.7) 10/07/18 20:44 Baso # (Auto) 0.0 10^3/uL (0.0-0.1) 10/07/18 20:44 Absolute Nucleated RBC 0.00 x10^3/uL 10/07/18 20:44 Nucleated RBC % 0.0 /100WBC 10/07/18 20:44 Sodium 140 mmol/L (135-145) 10/08/18 14:20 Potassium 3.4 mmol/L (3.5-5.0) L 10/08/18 14:20 Chloride 110 mmol/L (101-111) 10/08/18 14:20 Carbon Dioxide 24 mmol/L (21-32) 10/08/18 14:20 Anion Gap 6.0 (6-13) 10/08/18 14:20 BUN 16 mg/dL (6-20) 10/08/18 14:20 Creatinine 0.7 mg/dL (0.4-1.0) 10/08/18 14:20 Estimated GFR (MDRD) 85 (>89) L 10/08/18 14:20 Glucose 122 mg/dL (70-100) H 10/08/18 14:20 Calcium 8.3 mg/dL (8.5-10.3) L 10/08/18 14:20 Magnesium 2.0 mg/dL (1.7-2.8) 10/08/18 14:20 Total Bilirubin 0.6 mg/dL (0.2-1.0) 10/07/18 20:44 AST 21 IU/L (10-42) 10/07/18 20:44 ALT 17 IU/L (10-60) 10/07/18 20:44 Alkaline Phosphatase 55 IU/L (42-121) 10/07/18 20:44 Total Protein 6.9 g/dL (6.7-8.2) 10/07/18 20:44 Albumin 4.1 g/dL (3.2-5.5) 10/07/18 20:44 Globulin 2.8 g/dL (2.1-4.2) 10/07/18 20:44 Albumin/Globulin Ratio 1.5 (1.0-2.2) 10/07/18 20:44 Lipase 45 U/L (22-51) 10/07/18 20:44 Urine Color YELLOW 10/07/18 20:57 Urine Clarity CLEAR (CLEAR) 10/07/18 20:57 Urine pH 5.5 PH (5.0-7.5) 10/07/18 20:57 Ur Specific [place] >=1.030 (1.002-1.030) H 10/07/18 20:57 Urine Protein NEGATIVE mg/dL (NEGATIVE) 10/07/18 20:57 Urine Glucose (UA) NEGATIVE mg/dL (NEGATIVE) 10/07/18 20:57 Urine Ketones 40 mg/dL (NEGATIVE) H 10/07/18 20:57 Urine Occult Blood SMALL (NEGATIVE) H 10/07/18 20:57 Urine Nitrite NEGATIVE (NEGATIVE) 10/07/18 20:57 Urine Bilirubin NEGATIVE (NEGATIVE) 10/07/18 20:57 Urine Urobilinogen 0.2 (NORMAL) E.U./dL (NORMAL) 10/07/18 20:57 Ur Leukocyte Esterase NEGATIVE (NEGATIVE) 10/07/18 20:57 Urine RBC 6-10 /HPF (0-5) H 10/07/18 20:57 Urine WBC 0-3 /HPF (0-5) 10/07/18 20:57 Ur Squamous Epith Cells RARE Squamous (<= Few) 10/07/18 20:57 Urine Bacteria None Seen /HPF (None Seen) 10/07/18 20:57 Ur Microscopic Review INDICATED 10/07/18 20:57 Urine Culture Comments NOT INDICATED 10/07/18 20:57 Influenza A (Rapid) Negative (Negative) 10/08/18 07:09 Influenza B (Rapid) Negative (Negative) 10/08/18 07:09 - Procedures Procedures: Procedures EXCISION OF RECTUM, ENDO, DIAGN (12/18/16) INSERTION OF TOTALLY IMPLANTABLE VASC ACCESS DEVIC (12/13/13) THORAX SFT TISS XRAY NEC (12/13/13)
[2018-10-08] MEDS ORDERED: LORazepam 2 MG/ML VIAL IVP PRN ×2 (21:00)
[2018-10-08] MEDS: D5NS W/20 MEQ KCL 1,000 ML IV SCH (21:37)
[2018-10-09] MEDS: SODIUM CHLORIDE FLUSH 0.9% 10 ML SYRINGE IVP SCH ×3 (02:21→08:49)
[2018-10-09] MEDS: PROCHLORPERAZINE 10 MG/2 ML VIAL IVP PRN (03:34)
[2018-10-09] MEDS: SODIUM CHLORIDE FLUSH 0.9% 10 ML SYRINGE IVP PRN ×2 (03:34→05:38)
[2018-10-09] MEDS: D5NS W/20 MEQ KCL 1,000 ML IV SCH (05:29)
[2018-10-09] MEDS: PANTOPRAZOLE 40 MG VIAL IVP SCH (05:37)
[2018-10-09 08:11] VITALS: BP 110/46
[2018-10-09] MEDS: GABAPENTIN 300 MG CAPSULE PO SCH (08:13)
[2018-10-09] MEDS: ONDANSETRON 4 MG/2 ML VIAL IVP PRN (09:18)
[2018-10-09] MEDS: ENOXAPARIN 40 MG/0.4 ML SYRINGE SUBQ SCH (09:36)
[2018-10-09 10:02] LABS: CALCIUM 8.1 mg/dL (8.5-10.3); CREATININE 0.8 mg/dL (0.4-1.0); MAGNESIUM 1.9 mg/dL (1.7-2.8)
--- NOTE | 2018-10-09 10:54 | Discharge Plan ---
Discharge Plan Disposition: 01 Home, Self Care Condition: Stable Prescriptions: LORazepam [Ativan] 0.5 mg PO Q12H PRN #8 tablet PRN Reason: Insomnia Ondansetron [Ondansetron Odt] 4 mg PO Q6H PRN #10 tab.rapdis PRN Reason: Nausea / Vomiting Diet: Soft Activity Restrictions: Activity as Tolerated Shower Restrictions: No Driving Restrictions: No Instruction Topics: ED Gastroenteritis Non Infec Additional Instructions or Follow Up instructions: You were admitted with gastroenteritis and dehydration. Please eat a bland diet and stay well hydrated, as you continue to recover. New prescriptions of anti- nausea and insomnia medications were prescribed, and if you need refills, please get them from your PCP. See your PCP in follow-up in a week, and you should susy have a consultation with a Milk Hauler, since you have had recurrent gastroenteritis of unclear cause. If you get new or worsening symptoms, return to the ER. No Smoking: If you smoke, Please STOP! Call for help. Follow-up with: Ashley Krueger PA-C [Primary Care Provider] -
--- NOTE | 2018-10-13 14:38 | DISCHARGE SUMMARY ---
Physician: Tammy Salazar MD DATE OF ADMISSION: 10/07/2018 DATE OF DISCHARGE: 10/09/2018 HISTORY OF PRESENT ILLNESS: This is a 62-year-old white female with a history of cervical cancer and prior gastroenteritis. The patient presented with nausea and vomiting, and moderate abdominal pain that would not relent. She was placed in Observation for hydration and control of nausea for presumed recurrence of gastroenteritis. HOSPITAL COURSE AND DISCHARGE DIAGNOSES 1. Gastroenteritis. The patient was placed on bowel rest with n.p.o. status except chips then advanced to clear liquids. Her symptoms were controlled with antiemetics and pain medications. She was discharged to home after she could tolerate full liquids and with several extra doses of Zofran translingual. She was advised to have followup with her PCP and probably have a Nuclear Unit Operator since she reported that this was her "fifth episode of these symptoms." The patient had no evidence of bacterial infection with normal white blood count and no fever. An abdominal x-ray was done that showed entirely normal findings except surgical clips from prior intervention at the central pelvis, which were unchanged from July 2017. 2. Hypokalemia. This was from her vomiting and electrolyte losses. She required replacement with IV potassium. Her low potassium of 3.4 was up to 3.7 at the time of discharge. 3. Neuropathic pain. The patient was on gabapentin, which was presumed to be needed after prior chemotherapy and cancer. This was continued while here. 4. History of cervical cancer. The patient last had chemotherapy many years ago and is felt to be in remission. LABORATORY AND IMAGING: Reviewed and summarized above. CONDITION AT DISCHARGE: Stable. PHYSICAL EXAMINATION VITAL SIGNS: Blood pressure 110/50, heart rate 80, afebrile, room air saturation 96%. HEENT: Unremarkable except she appeared fatigued. NECK: Without JVD or carotid bruits. CHEST: Clear. HEART: Sounds normal. ABDOMEN: Soft, nontender. Normal bowel sounds. No masses. EXTREMITIES: Benign. NEUROLOGIC: Intact. MEDICATIONS AT THE TIME OF DISCHARGE 1. Gabapentin 600 mg q.p.m. 2. Omeprazole 10 mg daily. 3. Ativan 0.5 mg b.i.d. p.r.n. anxiety. 4. Ondansetron 4 mg sublingual tablets every 6 hours p.r.n. nausea. FOLLOWUP: She was advised to see her PCP in a week and consider a Gastroenterology consultation. CODE STATUS: FULL CODE. Time required to complete this entire discharge, chart review, prescription orders: 30 minutes. cc: Ashley Krueger PA-C TD: 10/13/2018 13:20 MTDD
== END 2018-10-09 11:30 | disposition home or self-care (01) ==
LOC: ED 20:16 → MS2 23:43
PROVIDERS: ADMIT Family Medicine Sports Medicine; ATTEND Internal Medicine
DX: K52.9 Noninfective gastroenteritis and colitis, unspecified (principal); E87.6 Hypokalemia; E86.0 Dehydration; M79.2 Neuralgia and neuritis, unspecified; G44.209 Tension-type headache, unspecified, not intractable; K21.9 Gastro-esophageal reflux disease without esophagitis; Z85.41 Personal history of malignant neoplasm of cervix uteri; Z85.118 Personal history of other malignant neoplasm of bronchus and lung
CPT/HCPCS: 36415; 74018; 80048; 80053; 81001; 83690; 83735; 85025; 87275; 87276; 93005; 96361; 96365; 96366; 96367; 96372; 96375; 96376; 99283; 99284; A9270; G0378; J1650; J2060; J7040; 81003; 87086

== ENCOUNTER 2019-02-26 20:52 | Outpatient (CLI) | payer MEDICAID ==
--- NOTE | 2019-02-28 08:35 | Ultrasound Report ---
Reason: ENLARGED THYROID Procedure Date: 02/26/2019 Accession Number: [id number] / [id number] Procedure: US - Head or Neck Soft Tissue CPT Code: FULL RESULT: EXAM: THYROID ULTRASOUND EXAM DATE: 02/26/2019 09:03 PM. CLINICAL HISTORY: Enlarged thyroid. COMPARISON: None. TECHNIQUE: Real time sonographic imaging of the thyroid was performed by the remote encoding operations supervisor. Multiple authorization representative static images were saved for review. FINDINGS: THYROID GLAND: Right Lobe: 4.8 x 1.5 x 1.8 cm, volume 7 cc. Normal background echotexture. Right Lobe Nodules: None. Left Lobe: 5.1 x 1.3 x 1.3 cm, volume 4.5 cc. Normal background echotexture. Left Lobe Nodules: Mixed cystic solid 5 mm avascular nodule posterior mid pole; mixed cystic solid 7 mm avascular nodule lower pole. Isthmus: 0.4 cm AP. Isthmic Nodules: 5 mm mixed cystic solid avascular nodule lateral left isthmus. LYMPH NODES: No adenopathy demonstrated in the central or lateral compartment. OTHER: None. IMPRESSION: 1. No significant thyroid enlargement. 2. 3 mixed cystic solid avascular nodules of the isthmus and left thyroid as described, none meeting criteria for FNA. Very low suspicion. Recommend surveillance imaging in 12 months to ensure expected stability. Management recommendations are based on 2015 [place] [employer] Management Guidelines for Adult Patients with Thyroid Nodules and Differentiated Thyroid Cancer. RADIA
== END 2019-02-26 20:53 | disposition home or self-care (01) ==
LOC: DI 20:52
PROVIDERS: ATTEND Obstetrics & Gynecology
DX: E04.2 Nontoxic multinodular goiter (principal)
CPT/HCPCS: 76536

== ENCOUNTER 2019-03-01 10:29 | Outpatient (CLI) | payer MEDICAID ==
--- NOTE | 2019-03-01 17:08 | Mammography Report ---
Reason: MAMMOGRAPHIC SCREENING FOR BREAST CANCER Procedure Date: 03/01/2019 Accession Number: [id number] / [id number] Procedure: HENRIK - Screening Mammo w/Brayan CPT Code: FULL RESULT: EXAM: Screening Mammo w/Brayan DATE: 03/01/2019 11:14 AM CLINICAL HISTORY: Routine screening. Personal history of cervical and lung cancer. No reported family history of breast cancer. TECHNIQUE: (B) - Bilateral Bilateral CC and MLO views were obtained. COMPARISON: 05/15/2016 PARENCHYMAL PATTERN: (D) - The breasts demonstrate heterogeneously dense fibroglandular parenchyma bilaterally. FINDINGS: Left breast: There is a new 3 mm grouping of calcifications in the posterior lower inner breast. There are no suspicious masses or areas of distortion. Right breast: There are no suspicious masses, calcifications, or areas of distortion. IMPRESSION: Left breast: New 3 mm grouping of calcifications lower inner left breast. Incomplete. BI-RADS Category 0. Additional mammographic imaging is recommended. Right breast: Negative. BI-RADS Category 1. Recommend annual screening mammography. RECOMMENDATION: (ADDMAM) - Recommend additional mammographic views. BI-RADS CATEGORY: (0) - Incomplete Examination - need additional evaluation STANDARD QUALIFYING STATEMENTS: 1. This examination was not reviewed with the aid of Computer-Aided Detection (CAD). 2. A negative or benign imaging report should not preclude biopsy if clinically suspicious findings are present. 3. Dense breasts may obscure an underlying neoplasm. 4. This examination was reviewed with the aid of 3D breast imaging (tomosynthesis).
== END 2019-03-01 10:30 | disposition home or self-care (01) ==
LOC: DI 10:29
PROVIDERS: ATTEND Obstetrics & Gynecology
DX: Z12.31 Encounter for screening mammogram for malignant neoplasm of breast (principal); R92.1 Mammographic calcification found on diagnostic imaging of breast
CPT/HCPCS: 77063; 77067

== ENCOUNTER 2019-03-09 08:56 | Outpatient (CLI) | payer MEDICAID ==
--- NOTE | 2019-03-09 10:21 | Mammography Report ---
Reason: ABNORMAL MAMMOGRAM Procedure Date: 03/09/2019 Accession Number: [id number] / [id number] Procedure: HENRIK - Diag Special Views Dig LT CPT Code: FULL RESULT: EXAM: Diag Special Views Dig LT DATE: 03/09/2019 9:19 AM CLINICAL HISTORY: No calcifications on screening mammogram. Diagnostic examination. TECHNIQUE: (L) - Left left spot magnified CC, ML, left spot magnified ML views COMPARISON: 03/01/2019 and 05/15/2016. PARENCHYMAL PATTERN: (A) - The breasts demonstrate scattered fibroglandular densities bilaterally. FINDINGS: The grouping of calcifications appears relatively coarse, probably benign. There are no suspicious masses, calcifications, or areas of distortion. IMPRESSION: Probably Benign. BI-RADS category 3. RECOMMENDATION: (6MOS) - Recommend 6 month follow-up exam. BI-RADS CATEGORY: (3) - Probably Benign. STANDARD QUALIFYING STATEMENTS: 1. This examination was not reviewed with the aid of Computer-Aided Detection (CAD). 2. A negative or benign imaging report should not preclude biopsy if clinically suspicious findings are present. 3. Dense breasts may obscure an underlying neoplasm. 4. This examination was reviewed with the aid of 3D breast imaging (tomosynthesis).
== END 2019-03-09 08:57 | disposition home or self-care (01) ==
LOC: DI 08:56
PROVIDERS: ATTEND Obstetrics & Gynecology
DX: R92.8 Other abnormal and inconclusive findings on diagnostic imaging of breast (principal)

== ENCOUNTER 2019-04-19 16:33 | Outpatient (CLI) | payer MEDICAID ==
[2019-04-19 17:08] LABS: ALBUMIN 3.9 g/dL (3.2-5.5); ALBUMIN/GLOBULIN RATIO 1.4 (1.0-2.2); BILIRUBIN,TOTAL 0.4 mg/dL (0.2-1.0); CALCIUM 9.5 mg/dL (8.5-10.3); CREATININE 0.9 mg/dL (0.4-1.0); TOTAL PROTEIN 6.6 g/dL (6.7-8.2)
== END 2019-04-19 16:34 | disposition home or self-care (01) ==
LOC: LAB 16:33
PROVIDERS: ATTEND Nurse Practitioner
DX: R11.2 Nausea with vomiting, unspecified (principal)
CPT/HCPCS: 36415; 80053

== ENCOUNTER 2019-12-07 12:29 | Outpatient (CLI) | payer MEDICARE ==
--- NOTE | 2019-12-07 13:47 | Mammography Report ---
Reason: 6 MO F/U - ABNORMAL MAMMOGRAM Procedure Date: 12/07/2019 Accession Number: [id number] / [id number] Procedure: HENRIK - Diagnostic Dig LT CPT Code: Final Report FULL RESULT: EXAM: Diagnostic Dig LT DATE: 12/07/2019 1:41 PM CLINICAL HISTORY: The patient is an asymptomatic 58-year-old female presenting for short interval follow-up left breast, calcifications. TECHNIQUE: (L) - Left. CC, MLO, true lateral and magnification views obtained. COMPARISON: 03/09/2019 (diagnostic) PARENCHYMAL PATTERN: Scattered fibroglandular pattern. FINDINGS:There are grouped calcifications in the lower inner posterior position spanning 3 mm. These are morphologically stable. There is no associated mass or distortion. Proceed with serial magnification views to confirm two-year stability. The remainder the parenchymal pattern is unremarkable. IMPRESSION: Probably Benign. BI-RADS category 3. RECOMMENDATION: (6MOS) - Recommend 6 month follow-up exam. The right breast screening mammogram may be performed same day. BI-RADS CATEGORY: (3) - Probably Benign. STANDARD QUALIFYING STATEMENTS: A negative or benign imaging report should not preclude biopsy if clinically suspicious findings are present. Dense breasts may obscure an underlying neoplasm. This examination was reviewed with the aid of 3D breast imaging (tomosynthesis).
== END 2019-12-07 12:30 | disposition home or self-care (01) ==
LOC: DI 12:29
PROVIDERS: ATTEND Nurse Practitioner
DX: R92.1 Mammographic calcification found on diagnostic imaging of breast (principal)

== ENCOUNTER 2020-05-11 14:28 | Outpatient (CLI) | payer MEDICARE | END 2020-05-11 14:29 | disposition home or self-care (01) | LOC: LAB 14:28 | PROVIDERS: ATTEND Internal Medicine Gastroenterology | DX: E03.9 Hypothyroidism, unspecified (principal); K52.0 Gastroenteritis and colitis due to radiation; K56.699 Other intestinal obstruction unspecified as to partial versus complete obstruction | CPT/HCPCS: 36415; 81599; 84443; 85651; 86021; 86140; 86671 ==

== ENCOUNTER 2020-06-15 12:53 | Outpatient (CLI) | payer MEDICARE | END 2020-06-15 12:54 | disposition home or self-care (01) | LOC: LAB 12:53 | PROVIDERS: ATTEND Surgery | DX: Z01.812 Encounter for preprocedural laboratory examination (principal); K56.609 Unspecified intestinal obstruction, unspecified as to partial versus complete obstruction; Z11.59 Encounter for screening for other viral diseases ==

== ENCOUNTER 2020-06-18 07:15 | Day surgery (SDC) | payer MEDICARE ==
[2020-06-18] MEDS ORDERED: GLYCOPYRROLATE 1 MG/5 ML VIAL IVP ONE (07:16)
[2020-06-18] MEDS ORDERED: PROPOFOL 200 MG/20 ML VIAL IVP ONE (07:16)
[2020-06-18] MEDS ORDERED: LIDOCAINE-MPF 2% 5 ML VIAL IM ONE (07:16)
[2020-06-18] MEDS ORDERED: ROCURONIUM 50 MG/5 ML VIAL IVP ONE (07:16)
[2020-06-18] MEDS ORDERED: PHENYLEPHRINE 10 MG/ML VIAL IV ONE (07:16)
[2020-06-18] MEDS ORDERED: DEXAMETHASONE 4 MG/ML VIAL IVP ONE (07:16)
[2020-06-18] MEDS ORDERED: ONDANSETRON 4 MG/2 ML VIAL IVP ONE (07:16)
[2020-06-18] MEDS ORDERED: LIDOCAINE 1%-EPI 1:100000 20 ML MDV ONE (07:20)
[2020-06-18] MEDS ORDERED: BUPIVACAINE 0.5% PF 30 ML VIAL ONE (07:20)
[2020-06-18] MEDS ORDERED: CEFAZOLIN SODIUM IN 0.9 % NACL 2 GM/100 ML BAG IV ONE ×2 (07:25→08:42)
[2020-06-18] MEDS ORDERED: LACTATED RINGERS 1,000 ML IV ONE ×2 (07:45→09:46)
[2020-06-18] MEDS ORDERED: ROPIVACAINE 0.2% PF 20ML VIAL ONE (08:06)
[2020-06-18] MEDS ORDERED: ROPIVACAINE 0.5% PF 20 ML AMPULE ONE (08:06)
--- NOTE | 2020-06-18 08:09 | ANESTHESIA ---
Pre-Anesthesia VS, & Labs - Diagnosis Recurrent intermittent bowel obstruction - Procedure Laparotomy with lysis of adhesions, possible bowel resection Vital Signs: Temp Pulse Resp BP Pulse Ox 36.4 C L 81 18 101/69 97 06/18/20 07:23 06/18/20 07:23 06/18/20 07:23 06/18/20 07:23 06/18/20 07:23 Height 5 ft 4 in Weight (kg) 52 kg Body Mass Index 20.1 - NPO >8 hours - Is Patient ?: No Home Medications and Allergies Home Medications: Ambulatory Orders Pantoprazole [Protonix] 40 mg PO DAILY 06/07/20 Ondansetron Odt [Zofran Odt] 4 mg TL Q6H PRN 06/18/20 Gabapentin 400 mg PO TID 12/17/16 Pantoprazole [Protonix] 40 mg PO DAILY 06/07/20 Ondansetron Odt [Zofran Odt] 4 mg TL Q6H PRN 06/18/20 Allergies/Adverse Reactions: Allergies Allergy/AdvReac Type Severity Reaction Status Date / Time hydrocodone bitartrate * AdvReac Mild Nausea Verified 06/18/20 07:55 [From Vicodin] Anes History & Medical History - Medical History Cardiovascular: reports: None Pulmonary: reports: None Gastrointestinal: reports: GERD (controlled with med.), Ulcers Urinary: reports: None Neuro: reports: None Musculoskeletal: reports: Chronic back pain Endocrine/Autoimmune: reports: None Blood Disorders: reports: None Skin: reports: Eczema, Psoriasis, Rosacea Smoking Status: Never smoker Psychosocial: reports: No issues indicated Other Past Medical History: s/p chemo and radiation for stage 4 cervical/lung cancer 5 years ago. - Surgical History Eyes Ears Nose Throat (EENT): Myringotomy (tubes), Tonsil/Adenoidectomy Gynecologic: Other (s/p radiation for cervical cancer) Exam General: Alert, Oriented x3, Cooperative, No acute distress Dental: WNL Mouth Openin Fingerbreadth Neck Mobility: Normal Mallampati classification: II Thyromental Distance: 4-6 cm Respiratory: Lungs clear, Normal breath sounds, No respiratory distress, No accessory muscle use Cardiovascular: Regular rate, Normal S1, Normal S2, No murmurs Mental/Cognitive Status: Alert/Oriented X3, Normal for patient Plan Anesthesia Type: General, Transverse Abdominis Plane (TAP) Block (Bilateral) Consent for Procedure(s) Verified and Reviewed: Yes Code Status: Attempt Resuscitation ASA classification: 3-Severe systemic disease Is this case an emergency?: No
[2020-06-18] MEDS ORDERED: ACETAMINOPHEN 500 MG TABLET PO ONE ×2 (08:10→08:14)
[2020-06-18] MEDS ORDERED: SUGAMMADEX 200 MG/2 ML VIAL IVP ONE (09:51)
[2020-06-18] MEDS ORDERED: HYDROmorphone 0.5 MG/0.5 ML SYRINGE ONE (10:19)
[2020-06-18] MEDS ORDERED: ONDANSETRON 4 MG/2 ML VIAL IVP PRN (10:21)
[2020-06-18] MEDS ORDERED: ACETAMINOPHEN 325 MG TABLET PO PRN (10:21)
[2020-06-18] MEDS ORDERED: IBUPROFEN 600 MG TABLET PO PRN (10:21)
[2020-06-18] MEDS ORDERED: oxyCODONE 5 MG TABLET PO PRN (10:21)
--- NOTE | 2020-06-18 10:35 | OPERATIVE REPORT ---
Operative Report - General Procedure Date: 06/18/20 Planned Procedure: Exploratory laparotomy with possible lysis of adhesions possible bowel resection and indicated procedures Pre-Op Diagnosis: Recurrent small bowel obstruction with evidence of stenosis on MR enterogra Procedure Performed: Exploratory laparotomy with lysis of adhesions and placement of Seprafilm Post Op Diagnosis: Recurrent small bowel obstruction secondary to adhesions - Procedure Note Primary Surgeon: Mark Anesthesia Provider: LUISITO Gerard Anesthesia Technique: General LMA, Regional block (TAP block) Pathology: None Estimated Blood Loss (mL): 5 Indications: Recurrent small bowel obstruction with evidence of stenosis in the left lower quadrant on MR enterography Findings: 1. Grossly normal bowel from the ligament of Treitz to the ileocecal valve with a few left lower quadrant adhesions. 2. Normal colon without evidence of mass or lesion 3. Fibrous obliterated appendiceal remnant 4. No palpably enlarged lymph nodes, masses, or other abnormal findings Complications: None apparent - Other Other Information/Narrative: After obtaining informed consent, the patient is brought the operating room and placed in the supine position on the operating table. Following successful induction of general anesthesia, appropriate padding of all bony prominences, and placement appropriate monitors the abdomen was prepped and draped in the standard surgical fashion. Patient had received an ultrasound-guided tap block prior to the surgeon entering the room.All elements of the surgical safety checklist were followed before, during, and after the procedure. A timeout was held per scope protocol. A 5 cm midline incision was created and through the umbilicus and carried down through the skin and subcutaneous tissue to reveal the fascia below. The fascia was opened sharply and the abdomen was entered under direct vision.Mediately encountered healthy-appearing small bowel.Cursory examination and palpation of the abdominal cavity did not reveal any gross abnormalities.We began by examining the small bowel at the ligament of Treitz. We evaluated the entirety of the small bowel all the way to the ileocecal valve. In the left lower quadrant, there were a few adhesions appearing to mildly constrict the movement of the ileum in this region. There was no gross obstruction, abnormal segment, fibrosis, or other explanation for the patient's symptoms.We then examined the entire colon from the ileocecal valve all the way to the rectosigmoid junction.There were no palpable masses no abnormalities. A few calcified diverticula were noted.The appendix was notably tiny with fibrous obliteration. No areas of inflammation were appreciated.The abdomen was checked for hem ostasis. A large piece of Seprafilm was then placed in the left lower quadrant around the area where the adhesive process had been noted.We were sure to place this around the segment of involved bowel so that it would also be from the abdominal wall.The wound was then checked for hemostasis. It was closed in 3 layers with PDS, Vicryl, and Monocryl. All sponge, needle, and instrument counts were correct at the conclusion of the case. Patient was allowed to wake from anesthesia without difficulty and taken to the postanesthesia care unit in good condition.
[2020-06-18] MEDS ORDERED: fentaNYL 100 MCG/2 ML VIAL ONE (10:46)
[2020-06-18] MEDS ORDERED: oxyCODONE 5 MG TABLET ONE (11:20)
[2020-06-18] MEDS ORDERED: IBUPROFEN 600 MG TABLET PO ONE (11:20)
[2020-06-18 11:54] VITALS: BP 94/56
== END 2020-06-18 07:16 | disposition home or self-care (01) ==
LOC: SDS 07:15
PROVIDERS: ATTEND Surgery
PROC: 0DN80ZZ Release Small Intestine, Open Approach (ICD-10-PCS; principal; 2020-06-18 08:15)
DX: K56.50 Intestinal adhesions [bands], unspecified as to partial versus complete obstruction (principal); K57.30 Diverticulosis of large intestine without perforation or abscess without bleeding; Z85.118 Personal history of other malignant neoplasm of bronchus and lung; Z85.41 Personal history of malignant neoplasm of cervix uteri; Z92.21 Personal history of antineoplastic chemotherapy; Z92.3 Personal history of irradiation
CPT/HCPCS: 44005; A9270; J0690; J1170; J2795; J7120

== ENCOUNTER 2021-01-01 10:51 | Outpatient (CLI) | payer MEDICARE ==
--- NOTE | 2021-01-02 14:34 | Mammography Report ---
UNILATERAL LEFT DIGITAL DIAGNOSTIC MAMMOGRAM 3D/2D: 01/01/2021 CLINICAL: Patient returns for 6 month follow up on left breast for calcifications. Comparison is made to exams dated: 05/18/2020 mammogram, 12/07/2019 mammogram, 03/09/2019 mammogram, 03/01 mammogram, 05/15/2016 mammogram, and 09/19/2011 mammogram - [facility]. There are scattered fibroglandular elements in left breast. There are stable grouped heterogeneous punctate calcifications in the left breast at 7 o'clock middle depth. No other significant masses or calcifications are seen in the breast. IMPRESSION: PROBABLY BENIGN The stable grouped heterogeneous punctate calcifications in the left breast are probably benign. A f ollow-up mammogram in 6 months is recommended. A follow-up mammogram in 6 months is recommended to demonstrate 2 year stability. Patient will be du e for screening mammography of the contralateral breast at that time. This exam was interpreted at Station ID: [id number]. NOTE: For mammograms, a report in lay terms will be sent to the patient. Approximately 15% of breast malignancies will not be visualized mammographically. In the management of a palpable breast mass, a negative mammogram must not discourage biopsy of a clinically suspicious lesion. Electronically Signed By: Bridger Red M.D. ddp/:01/01/2021 11:35:52 ACR BI-RADS Category 3: Probably benign 3343F PARENCHYMAL PATTERN: (A) - The breast(s) demonstrate(s) scattered fibroglandular densities. BI-RADS CATEGORY: (3) - 3 Mammogram [id number] 6 month follow-up LATERALITY: (B)
== END 2021-01-01 10:52 | disposition home or self-care (01) ==
LOC: DI 10:51
PROVIDERS: ATTEND Nurse Practitioner
DX: R92.8 Other abnormal and inconclusive findings on diagnostic imaging of breast (principal); N64.89 Other specified disorders of breast

== ENCOUNTER 2021-08-15 12:46 | Outpatient (CLI) | payer MEDICARE ==
--- NOTE | 2021-08-19 09:36 | Mammography Report ---
BILATERAL DIGITAL DIAGNOSTIC MAMMOGRAM 3D/2D: 08/15/2021 CLINICAL: Patient returns for 6 month follow up on left breast for calcifications. Comparison is made to exams dated: 01/01/2021 mammogram, 05/18/2020 mammogram, 12/07/2019 mammogram, 03/09 mammogram, 03/01/2019 mammogram, and 05/15/2016 mammogram - Merged with [facility]. There a re scattered fibroglandular elements in both breasts. There are stable grouped heterogeneous punctate calcifications in the left breast at 7 o'clock middle depth. No other significant masses, calcifications, or other findings are seen in either breast. IMPRESSION: PROBABLY BENIGN The stable grouped heterogeneous punctate calcifications in the left breast are probably benign. A f ollow-up mammogram in 6 months is recommended. This exam was interpreted at Station ID: [id number]. NOTE: For mammograms, a report in lay terms will be sent to the patient. Approximately 15% of breast malignancies will not be visualized mammographically. In the management of a palpable breast mass, a negative mammogram must not discourage biopsy of a clinically suspicious lesion. Electronically Signed By: Steven Ramirez M.D. jr/:08/15/2021 14:08:42 ACR BI-RADS Category 3: Probably benign 3343F PARENCHYMAL PATTERN: (A) - The breast(s) demonstrate(s) scattered fibroglandular densities. BI-RADS CATEGORY: (3) - 3 Mammogram [id number] 6 month follow-up LATERALITY: (B)
== END 2021-08-15 12:47 | disposition home or self-care (01) ==
LOC: DI 12:46
PROVIDERS: ATTEND Family Medicine
DX: R92.1 Mammographic calcification found on diagnostic imaging of breast (principal)

== ENCOUNTER 2021-11-11 09:07 | Outpatient (CLI) | payer MEDICARE ==
[2021-11-11 12:22] LABS: BASOPHILS % (AUTO) 0.8 %; EOSINOPHILS # (AUTO) 0.2 10^3/uL (0.0-0.7); EOSINOPHILS % (AUTO) 4.1 %; HCT - HEMATOCRIT 44.6 % (37.0-47.0); HGB - HEMOGLOBIN 14.5 g/dL (12.0-16.0); LYMPHOCYTES # (AUTO) 1.2 10^3/uL (1.5-3.5); LYMPHOCYTES % (AUTO) 22.6 %; MEAN CORPUSCULAR HEMOGLOBIN 31.5 pg (27.0-31.0); MEAN CORPUSCULAR HGB CONC 32.5 g/dL (32.0-36.0); MEAN PLATELET VOLUME 9.7 fL (7.9-10.8); MONOCYTES # (AUTO) 0.4 10^3/uL (0.0-1.0); MONOCYTES % (AUTO) 6.9 %; NEUTROPHILS # (AUTO) 3.3 10^3/uL (1.5-6.6); NEUTROPHILS % (AUTO) 65.4 %; PLT - PLATELET COUNT 250 10^3/uL (130-450); WHITE BLOOD COUNT 5.1 x10^3/uL (4.8-10.8)
[2021-11-11 12:43] LABS: ALBUMIN/GLOBULIN RATIO 1.5 (1.0-2.2); ALKALINE PHOSPHATASE 52 IU/L (42-121); ALT ALANINE AMINOTRANSFERASE 16 IU/L (10-60); AST ASPARTATE AMINOTRANSFERASE 18 IU/L (10-42); BILIRUBIN,TOTAL 0.5 mg/dL (0.2-1.0); BUN - BLOOD UREA NITROGEN 19 mg/dL (6-20); CALCIUM 9.6 mg/dL (8.5-10.3); CARBON DIOXIDE - CO2 28 mmol/L (21-32); CHLORIDE 104 mmol/L (101-111); CHOL/HDL RATIO 2.5 (<4.4); CHOLESTEROL 232 mg/dL; CREATININE 0.7 mg/dL (0.4-1.0); GFR - MDRD 83 (>89); GLUCOSE 88 mg/dL (70-100); HDL CHOLESTEROL 92 mg/dL; LDL CHOLESTEROL,CALCULATED 122 mg/dL; LDL/HDL RATIO 1.3 (<4.4); SODIUM 141 mmol/L (135-145); TOTAL PROTEIN 6.6 g/dL (6.7-8.2); TRIGLYCERIDES 89 mg/dL; VLDL CHOLESTEROL 18 mg/dL
[2021-11-11 12:44] LABS: BILIRUBIN,URINE NEGATIVE (NEGATIVE); GLUCOSE, URINE (UA) NEGATIVE (NEGATIVE); KETONES,URINE (UA) NEGATIVE (NEGATIVE); LEUKOCYTE ESTERASE, URINE NEGATIVE (NEGATIVE); NITRITE,URINE NEGATIVE (NEGATIVE); OCCULT BLOOD,URINE TRACE-INTA (NEGATIVE); PH,URINE 5.5 PH (5.0-7.5); PROTEIN,URINE NEGATIVE (NEGATIVE); UROBILINOGEN,URINE 0.2 (NORMAL) E.U./dL (NORMAL)
[2021-11-11 12:45] LABS: CA 125 5.8 U/mL (0.0-35.0)
[2021-11-11 12:49] LABS: THYROID STIMULATING HORMONE 3.02 uIU/mL (0.34-5.60)
[2021-11-11 13:13] LABS: CLARITY,URINE CLEAR (CLEAR); WBC,URINE 0-3 /HPF (0-5)
[2021-11-11 13:14] LABS: BACTERIA,URINE None Seen /HPF (None Seen); EPITHELIAL CELLS,UR None Seen /HPF (<= Few); RBC,URINE 0-5 /HPF (0-5); SQUAMOUS EPITHELIAL CELL,UR RARE Squamous (<= Few); WBC CLUMPS,URINE NONE SEEN
== END 2021-11-11 23:59 | disposition home or self-care (01) ==
LOC: LAB.WCP 09:07
PROVIDERS: ATTEND Nurse Practitioner
DX: R11.2 Nausea with vomiting, unspecified (principal); E78.2 Mixed hyperlipidemia; R53.83 Other fatigue; Z85.41 Personal history of malignant neoplasm of cervix uteri; C34.90 Malignant neoplasm of unspecified part of unspecified bronchus or lung; G62.0 Drug-induced polyneuropathy; T45.1X5A Adverse effect of antineoplastic and immunosuppressive drugs, initial encounter
CPT/HCPCS: 36415; 80053; 80061; 81001; 82607; 83721; 84443; 85025; 86304; 87086

== ENCOUNTER 2022-02-19 12:55 | Outpatient (CLI) | payer MEDICARE ==
--- NOTE | 2022-02-19 17:21 | DEXA Report ---
PROCEDURE: Dexa Spine and/or Hip INDICATIONS: OSTEOPENIA TECHNIQUE: Dual energy x-ray absorptiometry (DXA) was performed on a [employer] System. Regions measur ed are the AP Spine, femoral neck, and if needed forearm. COMPARISON: 05/15/2016. FINDINGS: Lumbar Spine: Bone Mineral Density 0.934 g/cm/cm,T score June 2 0.1, osteopenia Left Hip: Bone Mineral Density 0.838 g/cm/cm,T score -1.3, osteopenia Left Femoral Neck: Bone Mineral Density 0.73 g/cm/cm, T score -1.8, osteopenia (T score greater or equal to -1.0: NORMAL) (T score from -1.1 to -2.4: OSTEOPENIA) (T score less than or equal to -2.5 to: OSTEOPOROSIS) Impression: Osteopenia. Bone mineral density has decreased 8.2% in the interval since prior exam obtained 05/15/20 16. Patients with diagnosis of osteoporosis or osteopenia should have regular bone mineral density assess ment. For those eligible for Medicare, routine testing is allowed once every 2 years. Testing frequ ency can be increased for patients who have rapidly progressing disease or for those who are receivin g medical therapy to restore bone mass. Reviewed by: Keyona Gold MD, PhD on 02/19/2022 5:19 PM PDT Approved by: Keyona Gold MD, PhD on 02/19/2022 5:19 PM PDT Station ID: [id number]
== END 2022-02-19 12:56 | disposition home or self-care (01) ==
LOC: DI 12:55
PROVIDERS: ATTEND Nurse Practitioner
DX: M85.89 Other specified disorders of bone density and structure, multiple sites (principal)

== ENCOUNTER 2022-11-10 08:02 | Outpatient (CLI) | payer MEDICARE ==
[2022-11-10 08:29] LABS: BASOPHILS % (AUTO) 0.4 %; EOSINOPHILS # (AUTO) 0.1 10^3/uL (0.0-0.7); HCT - HEMATOCRIT 39.7 % (37.0-47.0); HGB - HEMOGLOBIN 12.8 g/dL (12.0-16.0); LYMPHOCYTES # (AUTO) 1.3 10^3/uL (1.5-3.5); LYMPHOCYTES % (AUTO) 24.8 %; MEAN CORPUSCULAR HEMOGLOBIN 30.8 pg (27.0-31.0); MEAN CORPUSCULAR HGB CONC 32.2 g/dL (32.0-36.0); MEAN CORPUSCULAR VOLUME 95.4 fL (81.0-99.0); MEAN PLATELET VOLUME 8.6 fL (7.9-10.8); MONOCYTES # (AUTO) 0.4 10^3/uL (0.0-1.0); MONOCYTES % (AUTO) 8.1 %; NEUTROPHILS # (AUTO) 3.3 10^3/uL (1.5-6.6); NEUTROPHILS % (AUTO) 64.5 %; PLT - PLATELET COUNT 224 10^3/uL (130-450); RED BLOOD COUNT 4.16 10^6/uL (4.20-5.40); RED CELL DISTRIBUTION WIDTH 13.9 % (12.0-15.0); WHITE BLOOD COUNT 5.1 x10^3/uL (4.8-10.8)
[2022-11-10 09:06] LABS: ALBUMIN 4.1 g/dL (3.2-5.5); ALBUMIN/GLOBULIN RATIO 1.7 (1.0-2.2); ALKALINE PHOSPHATASE 54 IU/L (42-121); ALT ALANINE AMINOTRANSFERASE 17 IU/L (10-60); AST ASPARTATE AMINOTRANSFERASE 21 IU/L (10-42); BILIRUBIN,TOTAL 0.7 mg/dL (0.2-1.0); BUN - BLOOD UREA NITROGEN 18 mg/dL (6-20); CALCIUM 9.5 mg/dL (8.5-10.3); CARBON DIOXIDE - CO2 27 mmol/L (21-32); CHLORIDE 105 mmol/L (101-111); CHOL/HDL RATIO 2.6 (<4.4); CHOLESTEROL 246 mg/dL; CREATININE 0.6 mg/dL (0.4-1.0); GFR - MDRD 99 (>89); GLUCOSE 101 mg/dL (70-100); HDL CHOLESTEROL 94 mg/dL; LDL CHOLESTEROL,CALCULATED 143 mg/dL; LDL/HDL RATIO 1.5 (<4.4); POTASSIUM 3.7 mmol/L (3.5-5.0); SODIUM 141 mmol/L (135-145); TOTAL PROTEIN 6.5 g/dL (6.7-8.2); TRIGLYCERIDES 43 mg/dL; VLDL CHOLESTEROL 9 mg/dL
[2022-11-10 09:09] LABS: CA 125 6.5 U/mL (0.0-35.0)
[2022-11-10 09:13] LABS: THYROID STIMULATING HORMONE 4.81 uIU/mL (0.34-5.60)
== END 2022-11-10 08:03 | disposition home or self-care (01) ==
LOC: LAB 08:02
PROVIDERS: ATTEND Nurse Practitioner
DX: E78.2 Mixed hyperlipidemia (principal); R53.83 Other fatigue; Z85.41 Personal history of malignant neoplasm of cervix uteri
CPT/HCPCS: 36415; 80053; 80061; 83721; 84443; 85025; 86304

== ENCOUNTER 2023-02-09 15:55 | Outpatient (CLI) | payer MEDICARE | END 2023-02-09 15:56 | disposition home or self-care (01) | LOC: LAB 15:55 | PROVIDERS: ATTEND Physician Assistant | DX: K21.00 Gastro-esophageal reflux disease with esophagitis, without bleeding (principal); K22.719 Barrett's esophagus with dysplasia, unspecified | CPT/HCPCS: 36415; 82607; 82746 ==

== ENCOUNTER 2024-03-01 13:00 | Outpatient (CLI) | payer MEDICARE ==
--- NOTE | 2024-03-01 14:16 | DEXA Report ---
PROCEDURE: Dexa Spine and/or Hip INDICATIONS: POST MENOPAUSAL TECHNIQUE: Dual energy x-ray absorptiometry (DXA) was performed on a [employer] System. Regions measur ed are the AP Spine, femoral neck, and if needed forearm. COMPARISON: 02/19/2022 FINDINGS: Lumbar Spine: Bone Mineral Density: 0.96 g/cm/cm,T score: -1.8. Previously -2.1 Left Femoral Neck: Bone Mineral Density: 0.85 g/cm/cm, T score: -1.4, previously -1.8. Left Hip: Bone Mineral Density: 0.83 g/cm/cm,T score: -1.4. Previously -1.3 (T score greater or equal to -1.0: NORMAL) (T score from -1.1 to -2.4: OSTEOPENIA) (T score less than or equal to -2.5 to: OSTEOPOROSIS) Impression: By WHO criteria, this patient has low bone density (osteopenia). Trace improvement in the T-scores in the left femoral neck and lumbar spine. Stable T score in the left hip. Patients with diagnosis of osteoporosis or osteopenia should have regular bone mineral density assess ment. For those eligible for Medicare, routine testing is allowed once every 2 years. Testing frequ ency can be increased for patients who have rapidly progressing disease or for those who are receivin g medical therapy to restore bone mass. Reviewed by: Scott Kay MD on 03/01/2024 2:14 PM PDT Approved by: Scott Kay MD on 03/01/2024 2:14 PM PDT Station ID: [id number]
== END 2024-03-01 13:01 | disposition home or self-care (01) ==
LOC: DI 13:00
PROVIDERS: ATTEND Nurse Practitioner
DX: M85.89 Other specified disorders of bone density and structure, multiple sites (principal); Z78.0 Asymptomatic menopausal state

== ENCOUNTER 2024-05-04 07:59 | Outpatient (CLI) | payer MEDICARE ==
[2024-05-04 08:10] LABS: BASOPHILS % (AUTO) 0.4 %; EOSINOPHILS # (AUTO) 0.2 10^3/uL (0.0-0.7); EOSINOPHILS % (AUTO) 3.2 %; HGB - HEMOGLOBIN 11.6 g/dL (12.0-16.0); LYMPHOCYTES # (AUTO) 1.3 10^3/uL (1.5-3.5); LYMPHOCYTES % (AUTO) 19.3 %; MEAN CORPUSCULAR HEMOGLOBIN 27.7 pg (27.0-31.0); MEAN CORPUSCULAR HGB CONC 30.5 g/dL (32.0-36.0); MEAN CORPUSCULAR VOLUME 90.7 fL (81.0-99.0); MEAN PLATELET VOLUME 8.9 fL (7.9-10.8); MONOCYTES # (AUTO) 0.6 10^3/uL (0.0-1.0); MONOCYTES % (AUTO) 8.3 %; NEUTROPHILS # (AUTO) 4.8 10^3/uL (1.5-6.6); NEUTROPHILS % (AUTO) 68.7 %; PLT - PLATELET COUNT 235 10^3/uL (130-450); RED BLOOD COUNT 4.19 10^6/uL (4.20-5.40); RED CELL DISTRIBUTION WIDTH 15.3 % (12.0-15.0)
[2024-05-04 08:34] LABS: ALBUMIN/GLOBULIN RATIO 1.8 (1.0-2.2); ALKALINE PHOSPHATASE 50 IU/L (42-121); ALT ALANINE AMINOTRANSFERASE 14 IU/L (10-60); AST ASPARTATE AMINOTRANSFERASE 16 IU/L (10-42); BILIRUBIN,TOTAL 0.2 mg/dL (0.2-1.0); BUN - BLOOD UREA NITROGEN 17 mg/dL (6-20); CALCIUM 9.5 mg/dL (8.5-10.3); CARBON DIOXIDE - CO2 27 mmol/L (21-32); CHLORIDE 108 mmol/L (101-111); CHOL/HDL RATIO 2.6 (<4.4); CHOLESTEROL 189 mg/dL; CREATININE 0.7 mg/dL (0.6-1.3); GFR - MDRD 83 (>89); GLUCOSE 107 mg/dL (74-104); HDL CHOLESTEROL 73 mg/dL; LDL CHOLESTEROL,CALCULATED 101 mg/dL; LDL/HDL RATIO 1.4 (<4.4); POTASSIUM 4.4 mmol/L (3.5-4.5); SODIUM 140 mmol/L (135-145); TOTAL PROTEIN 6.2 g/dL (6.4-8.9); TRIGLYCERIDES 74 mg/dL (48-352); VLDL CHOLESTEROL 15 mg/dL
[2024-05-04 08:41] LABS: THYROID STIMULATING HORMONE 2.95 uIU/mL (0.34-5.60)
== END 2024-05-04 08:00 | disposition home or self-care (01) ==
LOC: LAB 07:59
PROVIDERS: ATTEND Nurse Practitioner
DX: R53.83 Other fatigue (principal); Z79.899 Other long term (current) drug therapy; R41.3 Other amnesia; Z13.220 Encounter for screening for lipoid disorders
CPT/HCPCS: 36415; 80053; 80061; 83721; 84443; 85025

== ENCOUNTER 2024-06-08 10:16 | Outpatient (CLI) | payer MEDICARE | END 2024-06-08 23:59 | disposition critical access hospital (66) | LOC: EMS 10:16 | DX: R11.2 Nausea with vomiting, unspecified (principal); R10.817 Generalized abdominal tenderness; R51.9 Headache, unspecified | CPT/HCPCS: A0425; A0429 ==

== ENCOUNTER 2024-06-08 10:32 | Emergency (ER) | payer MEDICARE ==
--- NOTE | 2024-06-08 11:29 | ED Physician Documentation ---
History of Present Illness - Stated complaint Stated Complaint: N/V - Chief complaint Chief Complaint: Abd Pain - Additonal information Additional information: 2014 chemo for cervical and lung cancer and since then has had recurrent nausea and vomitting. Nausea vomitting started last eveiung around 1AM. no diarrhea, tends to be constipated. Feels cold and achey to what she attributes it to be dehydration no fevers or chills. Actively vomitting during interview. Emesis x 8-9 times since last night. Has been taking Zofran at home which is no longer helping and she feels like it is contributing to her constipation. Pt also reports she is having a headache from all the emesis. Denies cannabis use. 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 ERECTOR HELPER: Other HEENT: Myringotomy (tubes), Tonsil/Adenoidectomy - Present Medications Home Medications: Ambulatory Orders Medication Instructions Recorded Confirmed Pantoprazole [Protonix] 40 mg PO DAILY 06/07/20 06/08/24 LORazepam [Ativan] 1 mg PO Q8H PRN #20 tablet 07/30/20 06/08/24 Ondansetron Odt [Zofran Odt] 4 mg TL Q6H PRN #30 tablet 07/30/20 06/08/24 Prochlorperazine [Compazine] 5 mg PO Q6H #10 tablet 06/08/24 - Allergies Allergies/Adverse Reactions: Allergies Allergy/AdvReac Type Severity Reaction Status Date / Time hydrocodone bitartrate * AdvReac Mild Nausea Verified 06/08/24 10:43 [From Vicodin] - Social History Does the pt smoke?: No Smoking Status: Never smoker Does the pt drink ETOH?: No Does the pt have substance abuse?: No - Immunizations Immunizations are current?: No - POLST Patient has POLST: No POLST Status: Full Code PD ED PE NORMAL - Vitals Vital signs reviewed: Yes - General General: Alert and oriented X 3, No acute distress, Well developed/nourished, Other (ill appearing) - HEENT HEENT: Atraumatic, PERRL - Neck Neck: Supple, no meningeal sign - Cardiac Cardiac: RRR - Respiratory Respiratory: No respiratory distress - Abdomen Abdomen: Normal bowel sounds, Soft, Non tender, Non distended, No organomegaly - Derm Derm: Other (pale) Results - Vitals Vitals: Vital Signs - 24 hr 06/08/24 06/08/24 12:43 13:22 Temperature 36.0 C L Heart Rate 72 72 Respiratory 15 15 Rate Blood Pressure 134/67 H 134/67 H O2 Saturation 95 95 Oxygen O2 Source Room air - Labs Labs: Laboratory Tests 06/08/24 06/08/24 11:40 11:40 WBC 8.0 RBC 4.36 Hgb 12.0 Hct 38.6 MCV 88.5 MCH 27.5 MCHC 31.1 L RDW 15.8 H Plt Count 283 MPV 8.9 Neut # (Auto) 7.3 H Lymph # (Auto) 0.5 L Hunt # (Auto) 0.1 Eos # (Auto) 0.0 Baso # (Auto) 0.0 Absolute Nucleated RBC 0.00 Nucleated RBC % 0.0 Sodium 141 Potassium 3.7 Chloride 105 Carbon Dioxide 28 Anion Gap 8.0 BUN 18 Creatinine 0.7 Estimated GFR (MDRD) 83 L Glucose 175 H Calcium 10.0 Magnesium 1.7 Total Bilirubin 0.4 AST 14 ALT 14 Alkaline Phosphatase 55 Total Protein 7.1 Albumin 4.4 Globulin 2.7 Albumin/Globulin Ratio 1.6 Lipase 29 PD Medical Decision Making - ED course ED course: 68 yo female here for nausea vomitting that pt states is exactly like other episodes shes experienced since chemo in 2013. Labs complete no anemia or leukocytosis and no electrolyte abnormalities vitals stable. Pt was given one dose IV compazine and 1L NS IV bolus and states her symptoms have significantly improved. Script sent to her preferred pharmacy for compazine as she states Zofran doesnt work anymore. Pt would like to DC now and I think she is safe for DC, all questions answered, return precautions given told to follow up with her PCP Departure - Departure Disposition: 01 Home, Self Care Clinical Impression: Nausea & vomiting Instructions: Prochlorperazine tablets, ED Nausea Vomiting Prescriptions: Prochlorperazine [Compazine] 5 mg PO Q6H #10 tablet Comments: Thank you for trusting us with your care. We have given you Compazine, IV fluids and checked your labs and you have no abnormalities and state your symptoms have improved. I have sent a prescription to your preferred pharmacy of Compazine, if your noticing Zofran is causing constipation I would take with a senna or with Miralax, or both to prevent that. Please follow up with your PCP about todays ER visit and dont hesitate to return if you are experiencing any worsening symptoms. Forms: PCP List Discharge Date/Time: 06/08/24 13:23
[2024-06-08] MEDS: SODIUM CHLORIDE 0.9% 1,000 ML IV ONE (11:44)
[2024-06-08] MEDS: PROCHLORPERAZINE 10 MG/2 ML VIAL IVP STA (11:47)
[2024-06-08] MEDS: ACETAMINOPHEN 325 MG TABLET PO STA (11:47)
[2024-06-08 11:48] LABS: BASOPHILS % (AUTO) 0.1 %; EOSINOPHILS % (AUTO) 0.1 %; HCT - HEMATOCRIT 38.6 % (37.0-47.0); LYMPHOCYTES # (AUTO) 0.5 10^3/uL (1.5-3.5); LYMPHOCYTES % (AUTO) 6.3 %; MEAN CORPUSCULAR HEMOGLOBIN 27.5 pg (27.0-31.0); MEAN CORPUSCULAR HGB CONC 31.1 g/dL (32.0-36.0); MEAN CORPUSCULAR VOLUME 88.5 fL (81.0-99.0); MEAN PLATELET VOLUME 8.9 fL (7.9-10.8); MONOCYTES # (AUTO) 0.1 10^3/uL (0.0-1.0); MONOCYTES % (AUTO) 1.5 %; NEUTROPHILS # (AUTO) 7.3 10^3/uL (1.5-6.6); NEUTROPHILS % (AUTO) 91.6 %; PLT - PLATELET COUNT 283 10^3/uL (130-450); RED BLOOD COUNT 4.36 10^6/uL (4.20-5.40); RED CELL DISTRIBUTION WIDTH 15.8 % (12.0-15.0)
[2024-06-08 12:02] LABS: ALBUMIN 4.4 g/dL (3.2-5.5); ALBUMIN/GLOBULIN RATIO 1.6 (1.0-2.2); BILIRUBIN,TOTAL 0.4 mg/dL (0.2-1.0); CREATININE 0.7 mg/dL (0.6-1.3); MAGNESIUM 1.7 mg/dL (1.7-2.3); POTASSIUM 3.7 mmol/L (3.5-4.5); TOTAL PROTEIN 7.1 g/dL (6.4-8.9)
[2024-06-08 13:30] VITALS: BP 134/67; O2SAT 95
== END 2024-06-08 13:23 | disposition home or self-care (01) ==
LOC: EDUNIT# → ED 10:32
DX: R11.2 Nausea with vomiting, unspecified (principal); Z85.118 Personal history of other malignant neoplasm of bronchus and lung; Z85.41 Personal history of malignant neoplasm of cervix uteri; K21.9 Gastro-esophageal reflux disease without esophagitis; Z79.899 Other long term (current) drug therapy
CPT/HCPCS: 36415; 80053; 83690; 83735; 85025; 96374; 99283; 99284; A9270